=== PATIENT | female | born 1955 | race Caucasian/White ===

== ENCOUNTER → 2019-09-01 11:30 | Outpatient (CLI) | payer MEDICARE, OTHER, SELFPAY ==
--- NOTE | ~2019-09-01 | DEXA_ITS ---
Bone Density Report Name: Rufina Ramires Age: 64 Sex: Female Ethnicity: White Date of : 1955 Indication: osteopenia; monitoring treatment; postmenopausal Referring Provider: XIANG MONTGOMERY Study: Bone densitometry was performed. Exam Date: September 01, 2019 Accession number: [id number] Bone Density: Region BMD T-score Z-score Classification AP Spine (L1-L4) 0.816 -2.1 -0.3 Osteopenia Femoral Neck (Left) 0.680 -1.5 0.0 Osteopenia Total Hip (Left) 0.771 -1.4 -0.2 Osteopenia Femoral Neck (Right) 0.701 -1.3 0.2 Osteopenia Total Hip (Right) 0.756 -1.5 -0.3 Osteopenia Total Hip Mean 0.764 -1.5 -0.3 Osteopenia World Health Organization criteria for BMD impression classify patients as: Normal (T-score at or above -1.0), Osteopenia (T-score between -1.0 and -2.5), or Osteoporosis (T-score at or below -2.5). 10-year Fracture Risk: FRAX not reported because: Treated for osteoporosis Previous Exams: Region Exam Age BMD T-score BMD Change BMD Change Date g/cm2 vs Baseline vs Previous AP Spine(L1-L4) 09/01/2019 64 0.816 -2.1 0.000 0.011 07/25/2017 62 0.806 -2.2 -0.011 -0.011 04/02/2014 58 0.817 -2.1 Total Hip(Left) 09/01/2019 64 0.771 -1.4 0.020 0.016 07/25/2017 62 0.754 -1.5 0.003 0.003 04/02/2014 58 0.751 -1.6 Total Hip(Right) 09/01/2019 64 0.756 -1.5 0.017 -0.025 07/25/2017 62 0.782 -1.3 0.042* 0.042* 04/02/2014 58 0.739 -1.7 *Denotes significance at 95% confidence level, LSC for AP Spine = 0.022 g/cm2, LSC for Total Hip = 0.027 g/cm2 Clinical Information Provided by Patient: Is being treated for osteoporosis Has used the following medications: Evista (i.e. raloxifene), Vitamin D Patient maximum height was 66.5 Menopause Age: 43 Does not regularly consume dairy products Drinks caffeinated beverages Onset of menses at age 11 Number of children 1 Impression: The patient has low bone mass, based on the Total Spine T-score. No significant bone loss was observed. Discussion: PATIENT UNDER TREATMENT WITH NO SIGNIFICANT BMD LOSS SINCE LAST EXAM. In an untreated patient, BMD typically declines with age. A lack of decline or gain is usually a sign that treatment is efficacious and fracture risk is reduced. It is important to ask patients whether they are taking their medications and to encourage continued and
== END ==
PROVIDERS: Visit Provider Obstetrics & Gynecology
DX: Z78.0 Asymptomatic menopausal state (principal); M85.88 Other specified disorders of bone density and structure, other site; M85.852 Other specified disorders of bone density and structure, left thigh; M85.851 Other specified disorders of bone density and structure, right thigh
CPT/HCPCS: 77080

== ENCOUNTER → 2019-10-14 12:59 | Outpatient (CLI) | payer MEDICARE, OTHER, SELFPAY ==
--- NOTE | ~2019-10-14 | CT_ITS ---
EXAMINATION: CT abdomen pelvis wo con DATE: 10/14/2019 13:21 INDICATION: Right groin mass TECHNIQUE: Computed tomography (CT) of the abdomen and pelvis was performed without intravenous contr ast. The dose-length product (DLP) was 644.48 mGy-cm. Automated exposure control and iterative recons truction technique were employed. COMPARISON: None FINDINGS: The lung bases are clear. The heart size is normal. The liver, spleen, pancreas, gallbladde r, and adrenal glands are normal. The kidneys are unremarkable. There is calcified atherosclerosis of the aorta and many of the other arteries. No pathologically enlarged abdominal or pelvic lymph nodes are identified. There is no free intraperitoneal gas or evidence of bowel obstruction. The appendix is normal. There is a tiny inguinal hernia containing a small amount of ascites which measures up to 2.3 cm. IMPRESSION: 1. Tiny inguinal hernia containing a small volume of ascites likely accounting for the suspected righ t groin mass. Reviewed, dictated and finalized at location A. IMPRESSION: 1. Tiny inguinal hernia containing a small volume of ascites likely accounting for the suspected right groin mass.
== END ==
PROVIDERS: Visit Provider Obstetrics & Gynecology
DX: R19.09 Other intra-abdominal and pelvic swelling, mass and lump (principal); K40.90 Unilateral inguinal hernia, without obstruction or gangrene, not specified as recurrent
CPT/HCPCS: 74176

== ENCOUNTER → 2022-04-29 12:52 | Outpatient (CLI) | payer MEDICARE, OTHER, SELFPAY ==
--- NOTE | ~2022-04-29 | DEXA_ITS ---
Bone Density Report Name: ALIA DOTSON Age: 66 Sex: Female Ethnicity: White Date of : 1955 Indication: osteopenia; monitoring treatment; prior fracture;postmenopausal Referring Provider: Angel Luis Flynn Study: Bone densitometry was performed. Exam Date: April 29, 2022 Accession number: [id number] Bone Density: Region BMD T-score Z-score Classification AP Spine (L1-L4) 0.830 -2.0 0.0 Osteopenia Femoral Neck (Left) 0.651 -1.8 -0.1 Osteopenia Total Hip (Left) 0.755 -1.5 -0.2 Osteopenia Femoral Neck (Right) 0.681 -1.5 0.2 Osteopenia Total Hip (Right) 0.757 -1.5 -0.1 Osteopenia Total Hip Mean 0.756 -1.5 -0.2 Osteopenia World Health Organization criteria for BMD impression classify patients as: Normal (T-score at or above -1.0), Osteopenia (T-score between -1.0 and -2.5), or Osteoporosis (T-score at or below -2.5). 10-year Fracture Risk: FRAX not reported because: Treated for osteoporosis Previous Exams: Region Exam Age BMD T-score BMD Change BMD Change Date g/cm2 vs Baseline vs Previous AP Spine(L1-L4) 04/29/2022 66 0.830 -2.0 0.014 0.014 09/01/2019 64 0.816 -2.1 0.000 0.011 07/25/2017 62 0.806 -2.2 -0.011 -0.011 04/02/2014 58 0.817 -2.1 Total Hip(Left) 04/29/2022 66 0.755 -1.5 0.004 -0.016 09/01/2019 64 0.771 -1.4 0.020 0.016 07/25/2017 62 0.754 -1.5 0.003 0.003 04/02/2014 58 0.751 -1.6 Total Hip(Right) 04/29/2022 66 0.757 -1.5 0.018 0.001 09/01/2019 64 0.756 -1.5 0.017 -0.025 07/25/2017 62 0.782 -1.3 0.042* 0.042* 04/02/2014 58 0.739 -1.7 *Denotes significance at 95% confidence level, LSC for AP Spine = 0.022 g/cm2, LSC for Total Hip = 0.027 g/cm2 Clinical Information Provided by Patient: Has had a low trauma fracture Is being treated for osteoporosis Has used the following medications: Evista (i.e. raloxifene), Vitamin D, MTV Patient maximum height was 66.5 Menopause Age: 43 No regular weight bearing exercise Drinks caffeinated beverages Onset of menses at age 11 Number of children 1 Impression: The patient has low bone mass, based on the Total Spine T-score. The patient has risk factors, including: previous fracture. No significant bone loss was observed. Discussion: PATIENT UNDER TREATMENT WITH NO SIGNIFICANT BM
== END ==
PROVIDERS: Visit Provider Obstetrics & Gynecology
DX: Z78.0 Asymptomatic menopausal state (principal); M85.88 Other specified disorders of bone density and structure, other site; M85.851 Other specified disorders of bone density and structure, right thigh; M85.852 Other specified disorders of bone density and structure, left thigh
CPT/HCPCS: 77080

== ENCOUNTER 2023-02-02 18:52 | Emergency (ER) | payer MEDICARE, OTHER, SELFPAY ==
[2023-02-02 19:03] VITALS: BP 139/65; PULSE 82; RESP 14; TEMP 37.2; O2SAT 100
--- NOTE | 2023-02-02 19:17 | ED.URI ---
HPI - URI/Sore Throat General Chief Complaint: Upper Respiratory Infection Stated Complaint: Sore Throat Time Seen by Provider: 02/02/23 18:55 Source: patient Mode of arrival: ambulatory Limitations: no limitations History of Present Illness HPI Narrative: 67 year old female presents to [facility] with complaints of sore throat, right ear pressure, sinus congestion, cough and sneezing for the past week. Patient reports that her grandchildren recently visited her and they had similar symptoms and had negative strep test at that time. patient has been gargling warm saltwater with minimal relief. Patient has fever, Body aches, chills, nausea vomiting or diarrhea. patient reports that she has noticed increased fatigue today as she took a 2 hour nap prior to arrival MD elicited complaint: sore throat Onset (ago): week(s) (1) Able to tolerate fluids by mouth: Yes Exacerbating factors: swallowing Treatments prior to arrival: other (warm salt water gargles ) Related Data Home Medications Medication Instructions Recorded Confirmed aspirin 81 mg tablet,delayed 81 mg PO DAILY 08/17/19 02/02/23 release cholecalciferol (vitamin D3) 125 125 mcg PO DAILY 08/17/19 02/02/23 mcg (5,000 unit) tablet (Vitamin D3) coQ10 (ubiquinol) 200 mg capsule 200 mg PO DAILY 08/17/19 02/02/23 docusate sodium 100 mg capsule 100 mg PO DAILY 08/17/19 02/02/23 (Colace) folic acid-vit B6-vit B12 2.5 1 tablet PO EVERY OTHER DAY 08/17/19 02/02/23 mg-25 mg-2 mg tablet (Folbic) lactobacillus combination no.8 3 3,000 mmu cells PO DAILY 08/17/19 02/02/23 billion cell capsule (Adult Probiotic) niacin (inositol niacinate) 750 mg 750 mg PO BID 08/17/19 02/02/23 capsule omega-3 fatty acids-fish oil 360 1 cap PO BID 08/17/19 02/02/23 mg-1,200 mg capsule (Fish Oil) pravastatin 10 mg tablet 10 mg PO DAILY 08/17/19 02/02/23 raloxifene 60 mg tablet (Evista) 60 mg PO DAILY 08/17/19 02/02/23 vitamin K2 40 mcg tablet 100 mcg PO DAILY 08/17/19 02/02/23 amlodipine 5 mg tablet 5 mg PO DAILY 02/02/23 02/02/23 hydrochlorothiazide 12.5 mg tablet 12.5 mg PO DAILY 02/02/23 02/02/23 metoprolol succinate 25 mg 25 mg PO DAILY 02/02/23 02/02/23 tablet,extended release 24 hr Allergies Allergy/AdvReac Type Severity Reaction Status Date / Time isoniazid Allergy Unknown Hives Verified 02/02/23 18:54 Review of Systems Constitutional: Constitutional: Reports chills, Denies fatigue, Denies fever(s) and Denies weakness ENT: Denies vertigo, Denies dizziness, Denies epistaxis, Reports nasal congestion and Reports sore throat Comments: right ear pressure Respiratory: Respiratory: Reports cough, Denies dyspnea and Denies wheezing Gastrointestinal: Gastrointestinal: Denies diarrhea, Denies nausea and Denies vomiting Integumentary/Breasts: Skin/Breast: Denies pruritus, Denies erythema and Denies rash Neurologic: Denies dizziness, Denies syncope and Denies headache(s) PMFSH Past Medical History Medical History Facial basal cell cancer Hyperlipidemia Family History Family History Father Patient's father is in good health Sibling Family history of hypothyroidism Family history of malignant neoplasm of breast in first degree relative, Onset Age: 47 Mother Patient's mother is Comments At time of signature, I agree with nursing past medical, surgical, social and family history. There is no relevant family history pertinent to the presenting complaint. Exam Const: General: healthy appearing and no acute distress Nutritional Appearance: well nourished Orientation/consciousness: patient oriented x3 Limitations: no limitations HENMT: Head: normal to inspection Ears: external ears normal, TM's normal bilaterally and EAC's normal Face/Nose/Sinus: Normal external nose present Mouth: Yes Normal oral and palatal muc
== END 2023-02-02 19:28 | disposition home or self-care (01) ==
PROVIDERS: Emergency Provider Nurse Practitioner Family
DX: J06.9 Acute upper respiratory infection, unspecified (principal); E78.5 Hyperlipidemia, unspecified; Z85.828 Personal history of other malignant neoplasm of skin; Z79.82 Long term (current) use of aspirin
CPT/HCPCS: 87081; 87880; 99213; G0463

== ENCOUNTER 2024-04-07 19:09 | Emergency (ER) | payer MEDICARE, OTHER, SELFPAY ==
--- NOTE | ~2024-04-07 | XR_ITS ---
XR tibia fibula LT 2V Ordering provider: Nataly Barney APRN History: . left distal anterior leg pain s/p board dropping onto same . Comparison: December 18, 2014 FINDINGS: BONES: No acute fracture or dislocation. JOINT SPACES: Normal. SOFT TISSUES: Normal. IMPRESSION: No acute osseous abnormality left leg. Reviewed, dictated and finalized at location A.
[2024-04-07 19:23] VITALS: BP 167/76; PULSE 91; RESP 16; TEMP 37.2; O2SAT 98
--- NOTE | 2024-04-07 19:49 | ED.LOWEXIN ---
HPI - Extremity Injury (Lower) General Chief Complaint: Extremity Injury, Lower Stated Complaint: left hogan injury Time Seen by Provider: 04/07/24 19:50 Source: patient, RN notes reviewed and old records reviewed Mode of arrival: ambulatory Limitations: no limitations History of Present Illness HPI Narrative: Patient presents with complaints of left lower extremity pain. Just prior to arrival, she dropped what she describes as a ?very heavy board? to the left lower leg. She is ambulatory, but reports bearing weight hurts more. The area is tender to the touch, there is an associated abrasion present. No active bleeding. Related Data Home Medications Medication Instructions Recorded Confirmed aspirin 81 mg tablet,delayed 81 mg PO DAILY 08/17/19 04/10/24 release cholecalciferol (vitamin D3) 125 125 mcg PO DAILY 08/17/19 04/10/24 mcg (5,000 unit) tablet (Vitamin D3) coQ10 (ubiquinol) 200 mg capsule 200 mg PO DAILY 08/17/19 04/10/24 docusate sodium 100 mg capsule 100 mg PO DAILY 08/17/19 04/10/24 (Colace) folic acid-vit B6-vit B12 2.5 1 tablet PO EVERY OTHER DAY 08/17/19 04/10/24 mg-25 mg-2 mg tablet (Folbic) lactobacillus combination no.8 3 3,000 mmu cells PO DAILY 08/17/19 04/10/24 billion cell capsule (Adult Probiotic) niacin (inositol niacinate) 750 mg 750 mg PO BID 08/17/19 04/10/24 capsule omega-3 fatty acids-fish oil 360 1 cap PO BID 08/17/19 04/10/24 mg-1,200 mg capsule (Fish Oil) pravastatin 10 mg tablet 10 mg PO DAILY 08/17/19 04/10/24 raloxifene 60 mg tablet (Evista) 60 mg PO DAILY 08/17/19 04/10/24 vitamin K2 40 mcg tablet 100 mcg PO DAILY 08/17/19 04/10/24 amlodipine 5 mg tablet 5 mg PO DAILY 02/02/23 04/10/24 hydrochlorothiazide 12.5 mg tablet 12.5 mg PO DAILY 02/02/23 04/10/24 metoprolol succinate 25 mg 25 mg PO DAILY 02/02/23 04/10/24 tablet,extended release 24 hr Allergies Allergy/AdvReac Type Severity Reaction Status Date / Time isoniazid Allergy Unknown Hives Verified 04/10/24 11:26 Review of Systems Review of Systems: All systems reviewed & are unremarkable except as noted in HPI and below Constitutional: Constitutional: Reports no additional constitutional complaints ENT: Reports system reviewed and no additional complaints, except as documented Cardiovascular: Cardiovascular: Reports as per HPI and Reports no additional cardiovascular complaints Respiratory: Respiratory: Reports as per HPI and Reports no additional respiratory complaints Gastrointestinal: Gastrointestinal: Reports no additional gastrointestinal complaints Musculoskeletal: Musculoskeletal: Reports no additional musculoskeletal complaints and Reports as per HPI Integumentary/Breasts: Skin/Breast: Reports system reviewed and no additional complaints, except as docu and Reports as per HPI PMFSH Past Medical History Medical History Facial basal cell cancer Hyperlipidemia Family History Family History Father Patient's father is in good health Sibling Family history of hypothyroidism Family history of malignant neoplasm of breast in first degree relative, Onset Age: 47 Mother Patient's mother is Comments At the time of my signature, I reviewed and agree with the nursing past medical, surgical, social, and family history. There is no relevant family history pertinent to the patient complaint. Exam Const: General: cooperative, no acute distress, alert and awake Orientation/consciousness: oriented to person, oriented to place and oriented to time HENMT: Head: normal to inspection Resp: Effort & Inspection: normal respiratory effort and able to speak in complete sentences Auscultation: clear to auscultation bilaterally, no crackles, no rales, no rhonchi and no wheezes Cardio: Palpation: normal PMI Rate: regular rate Rhythm: regular rhythm Heart sounds: S1 n
[2024-04-07] MEDS: IBUPROFEN 400 MG TABLET 800 MG PO (20:03)
== END 2024-04-07 20:21 | disposition home or self-care (01) ==
PROVIDERS: Emergency Provider Nurse Practitioner Family
DX: S80.12XA Contusion of left lower leg, initial encounter (principal); T14.90XA Injury, unspecified, initial encounter; E78.5 Hyperlipidemia, unspecified
CPT/HCPCS: 73590; 99213; A9270; G0463

== ENCOUNTER 2024-04-10 11:16 | Emergency (ER) | payer MEDICARE, OTHER, SELFPAY ==
[2024-04-10 11:27] VITALS: BP 139/64; PULSE 93; RESP 19; TEMP 37; O2SAT 99
--- NOTE | 2024-04-10 11:57 | ED.LOWEXIN ---
HPI - Extremity Injury (Lower) General Chief Complaint: Extremity Injury, Lower Stated Complaint: Left Lower Leg Time Seen by Provider: 04/10/24 11:57 Source: patient, RN notes reviewed and old records reviewed Mode of arrival: ambulatory Limitations: no limitations History of Present Illness HPI Narrative: Patient presents with complaints of worsening to abrasion on left lower leg. Patient was seen 3 days ago for an injury to the left lower leg after board fell on it. She reports that overall the injury is feeling better, she is able to walk more comfortably, but the abrasion that she sustained is worsening. She further shares that she noted that there were several lizzy nails on the board that fell on her, she was not aware of this when she was initially seen. Last tetanus was 2018. She denies any new injury or trauma. Voices no other concerns or complaints today. Related Data Home Medications Medication Instructions Recorded Confirmed aspirin 81 mg tablet,delayed 81 mg PO DAILY 08/17/19 04/10/24 release cholecalciferol (vitamin D3) 125 125 mcg PO DAILY 08/17/19 04/10/24 mcg (5,000 unit) tablet (Vitamin D3) coQ10 (ubiquinol) 200 mg capsule 200 mg PO DAILY 08/17/19 04/10/24 docusate sodium 100 mg capsule 100 mg PO DAILY 08/17/19 04/10/24 (Colace) folic acid-vit B6-vit B12 2.5 1 tablet PO EVERY OTHER DAY 08/17/19 04/10/24 mg-25 mg-2 mg tablet (Folbic) lactobacillus combination no.8 3 3,000 mmu cells PO DAILY 08/17/19 04/10/24 billion cell capsule (Adult Probiotic) niacin (inositol niacinate) 750 mg 750 mg PO BID 08/17/19 04/10/24 capsule omega-3 fatty acids-fish oil 360 1 cap PO BID 08/17/19 04/10/24 mg-1,200 mg capsule (Fish Oil) pravastatin 10 mg tablet 10 mg PO DAILY 08/17/19 04/10/24 raloxifene 60 mg tablet (Evista) 60 mg PO DAILY 08/17/19 04/10/24 vitamin K2 40 mcg tablet 100 mcg PO DAILY 08/17/19 04/10/24 amlodipine 5 mg tablet 5 mg PO DAILY 02/02/23 04/10/24 hydrochlorothiazide 12.5 mg tablet 12.5 mg PO DAILY 02/02/23 04/10/24 metoprolol succinate 25 mg 25 mg PO DAILY 02/02/23 04/10/24 tablet,extended release 24 hr Allergies Allergy/AdvReac Type Severity Reaction Status Date / Time isoniazid Allergy Unknown Hives Verified 04/10/24 11:26 Review of Systems Review of Systems: All systems reviewed & are unremarkable except as noted in HPI and below Constitutional: Constitutional: Reports no additional constitutional complaints ENT: Reports system reviewed and no additional complaints, except as documented Cardiovascular: Cardiovascular: Reports no additional cardiovascular complaints Respiratory: Respiratory: Reports no additional respiratory complaints Gastrointestinal: Gastrointestinal: Reports no additional gastrointestinal complaints Integumentary/Breasts: Skin/Breast: Reports system reviewed and no additional complaints, except as docu, Reports as per HPI, Reports erythema and Reports wounds PMFSH Past Medical History Medical History Facial basal cell cancer Hyperlipidemia Family History Family History Father Patient's father is in good health Sibling Family history of hypothyroidism Family history of malignant neoplasm of breast in first degree relative, Onset Age: 47 Mother Patient's mother is Exam Const: General: cooperative, no acute distress, alert and awake Orientation/consciousness: oriented to person, oriented to place and oriented to time HENMT: Head: normal to inspection Resp: Effort & Inspection: normal respiratory effort and able to speak in complete sentences Auscultation: clear to auscultation bilaterally, no crackles, no rales, no rhonchi and no wheezes Cardio: Palpation: normal PMI Rate: regular rate Rhythm: regular rhythm Heart sounds: S1 normal heart sound present and S2 normal heart sound present Skin: F
[2024-04-10] MEDS: TETANUS,DIPHTHERIA,AC PERTUSSIS ADULT (0.5 ML) BOOSTRIX IM (12:15)
== END 2024-04-10 12:25 | disposition home or self-care (01) ==
PROVIDERS: Emergency Provider Nurse Practitioner Family
DX: L03.116 Cellulitis of left lower limb (principal); Z23 Encounter for immunization; S80.812A Abrasion, left lower leg, initial encounter; W20.8XXA Other cause of strike by thrown, projected or falling object, initial encounter; E78.5 Hyperlipidemia, unspecified; Z85.828 Personal history of other malignant neoplasm of skin; Z79.82 Long term (current) use of aspirin
CPT/HCPCS: 90471; 90715; 99213; G0463

== ENCOUNTER 2024-10-12 13:08 | Outpatient (CLI) | payer MEDICARE, OTHER, SELFPAY ==
--- NOTE | ~2024-10-12 | DEXA_ITS ---
Bone Density Report Name: ALIA DOTSON Age: 69 Sex: Female Ethnicity: White Date of : 1955 Indication: postmenopausal; screening for osteoporosis; Referring Provider: GURU RICHARDS Study: Bone densitometry was performed. Exam Date: October 12, 2024 Accession number: [id number] Bone Density: Region BMD T-score Z-score Classification AP Spine(L1-L4) 0.845 -1.8 0.3 Osteopenia Femoral Neck (Left) 0.668 -1.6 0.2 Osteopenia Total Hip (Left) 0.800 -1.2 0.4 Osteopenia Femoral Neck (Right) 0.672 -1.6 0.2 Osteopenia Total Hip (Right) 0.751 -1.6 -0.1 Osteopenia Total Hip Mean 0.775 -1.4 0.2 Osteopenia World Health Organization criteria for BMD impression classify patients as: Normal (T-score at or above -1.0), Osteopenia (T-score between -1.0 and -2.5), or Osteoporosis (T-score at or below -2.5). 10-year Fracture Risk: FRAX not reported because: Treated for osteoporosis Clinical Information Provided by Patient: Is being treated for osteoporosis Has used the following medications: Evista (i.e. raloxifene), Vitamin D Patient maximum height was 66.5 Menopause Age: 43 No regular weight bearing exercise Drinks caffeinated beverages Onset of menses at age 11 Number of children 1 Impression: The patient has low bone mass, based on the Total Spine T-score. Discussion: It is important to ask patients whether they are taking their medications and to encourage continued and appropriate compliance with their osteoporosis therapies to reduce fracture risk. It is also important to review their risk factors and encourage appropriate calcium and vitamin D intakes, exercise, fall prevention and other lifestyle measures. Follow-Up: Consider a repeat BMD and Vertebral Fracture Assessment (VFA) exam in 2 years or sooner if medically necessary, to reassess this patient's status. Reported by: FLORA on 10/12/2024 1:48:00 PM. Reviewed, dictated and finalized at location [facility]
--- OUTSIDE RECORDS SUMMARY | 2024-10-12 14:35 | XMS_ITS | Data Portability ---
Author Organization [facility] [place] Address [address] [place] [address] Assessment Encounter Date Assessment Date Assessment LastModified by Organization Details LastModified Time 05/13/2024 05/13/2024 Annual gynecological exam performed. Patient will come back in a year unless there are new symptoms. [email or web address] Not available 05/13/2024 15:39:56 Plan of Treatment Reminders Order Date Submit Date Provider Last Modified By Organization Details Last Modified Time Details Appointments MED CHECK 2024 01:00P Jennifer FLYNN MD Not available Not available Not available Lab None recorded. Referral None recorded. Procedures None recorded. Surgeries None recorded. Imaging None recorded. Medication Orders phentermi ne 15 mg capsule 2023 [facility] [address], [address] [place], [address], 05/13/2024 16:21:14 estradiol 0.01% (0.1 mg/gram) vaginal cream 2023 [facility]/Pharmacy #[id number], [address] [place], [address], 05/13/2024 16:18:48 phentermi ne 15 mg capsule 2023 [facility]/Pharmacy #[id number], [address] [place], [address], 11/06/2023 16:00:04 phentermi ne 15 mg capsule 2023 024 [facility]/Pharmacy #[id number], [address] [place], [address], 09/04/2023 15:54:34 Patient TargetsNo targets recorded. Patient InstructionsNo instructions recorded. Reason for Referral None Reported. Results Created Date Observation Date Name Description Value Unit Range Abnormal Flag Note LastModifiedBy Organization Detail LastModifiedTime 05/13/20 24 05/13/2024 IMAGE GUIDE D PAP AND HPV REGAR DLESS image guided Pap, HPV regardless of Pap result SEE RESULT S BELOW CASE REPOR T: Cytol ogy Gynec ologi janna Repor t Case: [id number] Autho konrad simon Provi sumaya: Ramiro Flynn MD Colle cted: 05/13 1601 Order ing Locat ion: [place] Patho log[facility] Recei trin[place]: 05/14 0925 First Scree n: José Miguel Carney ed, CT Speci men: Evelin perdomo Pap - Image d, Cervi x STATE MENT OF ADEQU ACY: Satis facto ry for evalu ation Trans forma tion zone compo nent canno t be defin itive ly ident ified due to the prese nce of atrop hy or other hormo nal jorgensen es ----- ----- ----- ----- ----- ----- ----- ----- ----- ----- ----- ----- ----- ----- ----- ----- ----- ---- FINAL DIAGN OSIS: Negat tha for Intra epith elial Leseleno n or Mikel padilla (NIL) . Atrop jose cruz rn. Elect joe pabon by José Miguel Carney ed, CT on 05/20 at 12:06 AM ----- ----- ----- ----- ----- ----- ----- ----- ----- ----- ----- ----- ----- ----- ----- ----- ----- ---- HPV RESUL TS: HPV mRNA E6/E7 : No HPV mRNA Detec merly NOTE: This high risk HPV mRNA assay detec ts fourt een high- risk HPV types (16, 18, 31, 33, 35, 39, 45, 51, 52, 56, 58, 59, 66, 68) witho ut diffe renti ation . COMME NT: This speci men was revie wed by a Cytot echno logis t and/o r Patho logis t (as indic ated in this repor t) after evalu ation using the Thinp rep Imagi ng Syste m. CLINI JANNA INFOR MATIO N: Menst rual Statu s: LMP (if appli cable ): Clini janna Histo ry/Pr eviou s Pap: Type of Neopl robert (if appli cable ): Signi fican t Clini janna Findi ngs: Other Histo ry: Hormo nik (if appli cable ): PAP EDUCA CARMEN L NOTE: The Pap Test is a scree leanne test with an inher ent false negat tha rate. Liqui d-bas ed sampl ing may decre ase, but will not elimi elizabeth, false negat tha resul ts. A negat tha resul t does not precl ude the prese nce and/o r devel opmen t of disea se, since the prese nce of abnor mal cells in the sampl e depen ds on the locat ion of the lesio n and sampl ing techn ique. Ector nued regul ar scree leanne is the best metho d of cance r preve ntion . If repor merly cytol ogic findi ng do not corre late with physi janna and/o r histo rical findi ngs, furth er inves tigat ion is recom jose d, as clini nia elliott nted. Not Available [facility] (Lab) [address], [place], [address], 05/20/2024 01:09:28 08/19/19 25 08/19/2024 CBC W/DIF F WBC 5.8 10'3/ uL 3.5-[address] [facility] (Lab) [address], [place], [address], 08/20/2024 06:45:20 08/19/19 25 08/19/2024 CBC W/DIF F RBC 4.53 10'6/ uL (based on docume nted legal sex) 3.80-[address] [facility] (Lab) [address], [place], [address], 08/20/2024 06:45:20 08/19/19 25 08/19/2024 CBC W/DIF F HGB 14.4 g/dL (based on docume nted legal sex) 11.6-[address] [facility] (Lab) [address], [place], [address], 08/20/2024 06:45:20 08/19/19 25 08/19/2024 CBC W/DIF F HCT 43.6 % (based on docume nted legal sex) 34.0-[address] [facility] (Lab) [address], [place], [address], 08/20/2024 06:45:20 08/19/19 25 08/19/2024 CBC W/DIF F MCV 96.2 fL 80.0-[address] [facility] (Lab) [address], [place], [address], 08/20/2024 06:45:20 08/19/19 25 08/19/2024 CBC W/DIF F MCH 31.8 pg 27.0-[address] [facility] (Lab) [address], [place], [address], 08/20/2024 06:45:20 08/19/19 25 08/19/2024 CBC W/DIF F MCHC 33.0 g/dL 32.0-[address] [facility] (Lab) [address], [place], [address], 08/20/2024 06:45:20 08/19/19 25 08/19/2024 CBC W/DIF F RDW 12.7 % 11.0-[address] [facility] (Lab) [address] [facility], [place], [address], 08/20/2024 06:45:20 08/19/19 25 08/19/2024 CBC W/DIF F plt 267 10'3/ uL 150-[address] [facility] (Lab) [address] [facility], [place], [address], 08/20/2024 06:45:20 08/19/19 25 08/19/2024 CBC W/DIF F MPV 10.0 fL 8.8-[address] [facility] (Lab) [address] [facility], [place], [address], 08/20/2024 06:45:20 08/19/19 25 08/19/2024 CBC W/DIF F neutrophils 59.3 % 34.0-[address] [facility] (Lab) [address] [facility], [place], [address], 08/20/2024 06:45:20 08/19/19 25 08/19/2024 CBC W/DIF F lymphocytes 28.3 % 15.0-[address] [facility] (Lab) [address] [facility], [place], [address], 08/20/2024 06:45:20 08/19/19 25 08/19/2024 CBC W/DIF F monocytes 9.0 % 1.0-[address] [facility] (Lab) [address] [facility], [place], [address], 08/20/2024 06:45:20 08/19/19 25 08/19/2024 CBC W/DIF F eosinophils 2.1 % 0.0-8. [address] [facility] (Lab) [address] [facility], [place], [address], 08/20/2024 06:45:20 08/19/19 25 08/19/2024 CBC W/DIF F basophils 1.0 % 0.0-2. [address] [facility] (Lab) [address] [facility], [place], [address], 08/20/2024 06:45:20 08/19/19 25 08/19/2024 CBC W/DIF F immature granulocytes 0.3 % no define d refere nce range Immat ure Granu locyt es (IG) repre sents autom ated enume ratio n of Metam yeloc ytes, Myelo cytes and Promy elocy kathleen when IG is < 5%. Blast s are not inclu ded in IG and repor merly separ ately if prese nt. Not Available [facility] (Lab) [address] [facility], [place], [address], 08/20/2024 06:45:20 08/19/19 25 08/19/2024 CBC W/DIF F absolute neutrophils 3.4 10'3/ uL 1.5-8. [address] [facility] (Lab) [address] [facility], [place], [address], 08/20/2024 06:45:20 08/19/19 25 08/19/2024 CBC W/DIF F absolute lymphocytes 1.6 10'3/ uL 1.0-4. [address] [facility] (Lab) [address] [facility], [place], [address], 08/20/2024 06:45:20 08/19/19 25 08/19/2024 CBC W/DIF F absolute monocytes 0.5 10'3/ uL 0.2-1. [address] [facility] (Lab) [address] [facility], [place], [address], 08/20/2024 06:45:20 08/19/19 25 08/19/2024 CBC W/DIF F absolute eosinophils 0.1 10'3/ uL 0.0-0. [address] [facility] (Lab) [address], [place], [address], 08/20/2024 06:45:20 08/19/19 25 08/19/2024 CBC W/DIF F absolute basophils 0.1 10'3/ uL 0.0-0. [address] [facility] (Lab) [address], [place], [address], 08/20/2024 06:45:20 08/19/19 25 08/19/2024 CBC W/DIF F absolute immature granulocytes 0.0 10'3/ uL 0.00-0 .10 Refer ence range s for nonbi nary/ inter sex or unspe cifie d gende r patie nts have not been estab lishe d. Pleas e [facility] for range s estab lishe d for cisge nder patie nts and evalu ate in the clini janna demetrius xt of the indiv idual patie nt: https ://heather keenan book. nm.or g/Gen derX Not Available [facility] (Lab) [address], [place], [address], 08/20/2024 06:45:20 08/19/19 25 08/19/2024 LIPID PANEL ,AMA (LDL- CALC) total cholesterol 143 mg/dL 0-199 Not Available [facility] (Lab) [address] [place], [address], 08/20/2024 06:45:21 08/19/19 25 08/19/2024 LIPID PANEL ,AMA (LDL- CALC) triglyceride s 72 mg/dL 0-150 NCEP Refer ence Value s for Trigl yceri abraham: Joana l: <150 mg/dL Borde rline High: 150 - 199 mg/dL High: 200 - 499 mg/dL Very High: >/= 500 mg/dL Not Available [facility] (Lab) [address] [place], [address], 08/20/2024 06:45:21 08/19/19 25 08/19/2024 LIPID PANEL ,AMA (LDL- CALC) HDL cholesterol 51 mg/dL >40 Not Available [facility] (Lab) [address] [facility], [place], [address], 08/20/2024 06:45:21 08/19/19 25 08/19/2024 LIPID PANEL ,AMA (LDL- CALC) LDL cholesterol 77 mg/dL 0-99 Cutof f value s recom jose d by the Natio nal Triny stero l Educa tion Progr am: EDILBERTO ABLE: Triny stero l <200 mg/dL LDL <100 mg/dL BORDE RLINE : Triny stero l 200-2 39 mg/dL LDL 101-1 59 mg/dL HIGHE R RISK: Triny stero l >240 mg/dL LDL >160 mg/dL , HDL <40 mg/dL Not Available [facility] (Lab) [address] [facility], [place], [address], 08/20/2024 06:45:21 08/19/19 25 08/19/2024 LIPID PANEL ,AMA (LDL- CALC) non-HDL cholesterol 92 mg/dL no refere nce range A reaso nable goal for non-H DL triny stero l is one that is 30 mg/dL highe r than the LDL triny stero l goal. Not Available [facility] (Lab) [address] [place], [address], 08/20/2024 06:45:21 08/19/1908/19/2024 LIPID PANEL ,AMA (LDL- CALC) chol/HDL ratio 2.8 . 0.0-5. 0 On November 19, 2022, [facility] labor atori sathish jorgensen ed the equat ion for calcu latin g estim ated low-d ensit y lipop rotei n-cho leste rol (LDL- C) from the Merna leeald equat ion to the Maura rojas/Chito buchanan equat ion. This new equat ion is only valid for lipid panel s with trigl yceri abraham < 400 mg/dL . Studi es have demon nadine ed that this new equat ion will impro ve the accur acy of LDL-C , espec ially in scena gottlieb when LDL-C sofia ntrat ions are relat ively low (< 100 mg/dL ), trigl yceri abraham are eleva merly, or patie nt is non-f astin g. Refer ences : - Maura rojas, Jaxson Shah, Patrick Stewart , José Miguel vyas, Dick Navas, [facility] , and Catalino Smith . 2013. Comp ariso n of a Novel Metho d vs the Fried jacob Equat ion for Estim ating Low-D ensit y Lipop rotei n Triny stero l Level s from the [facility] Lipid Profi le. RAUDEL: The Journ al of the Ameri can Medic al Assoc iatio n 310 (19): 2060- . - oJanna santana V, Zita J, Hailee ar A, Dallas M, Radha e R, Opal ar E, [facility]adi [facility] RS, Luis SR, Maura rojas SS. Fast ing Versu s Nonfa sting and Low-D ensit y Lipop rotei n Triny stero l Accur acy. Circu latio n. 2017Jul 29;137 (1):1 0-19. Not Available [facility] (Lab) [address] , [place], [address], 08/20/2024 06:45:21 08/19/1908/19/2024 CMP(C OMPRE HENSI VE METAB OLIC PANEL ) sodium 136 mmol/ L 133-[address] [facility] (Lab) [address] [place], [address], 08/20/2024 06:45:21 08/19/1908/19/2024 CMP(C OMPRE HENSI VE METAB OLIC PANEL ) potassium 4.2 mmol/ L 3.5-5. [address] [facility] (Lab) [address], [place], [address], 08/20/2024 06:45:21 08/19/19 25 08/19/2024 CMP(C OMPRE HENSI VE METAB OLIC PANEL ) chloride 101 mmol/ L 98-[address] [facility] (Lab) [address], [place], [address], 08/20/2024 06:45:21 08/19/19 25 08/19/2024 CMP(C OMPRE HENSI VE METAB OLIC PANEL ) carbon dioxide 29 mmol/ L 21-[address] [facility] (Lab) [address] [facility], [place], [address], 08/20/2024 06:45:21 08/19/19 25 08/19/2024 CMP(C OMPRE HENSI VE METAB OLIC PANEL ) anion gap 6 mmol/ L 4-[address] [facility] (Lab) [address] [facility], [place], [address], 08/20/2024 06:45:21 08/19/19 25 08/19/2024 CMP(C OMPRE HENSI VE METAB OLIC PANEL ) blood urea nitrogen 25 mg/dL 7-25 Not Available [facility] (Lab) [address] [facility], [place], [address], 08/20/2024 06:45:21 08/19/19 25 08/19/2024 CMP(C OMPRE HENSI VE METAB OLIC PANEL ) creatinine 0.96 mg/dL 0.60-[address] [facility] (Lab) [address] [facility], [place], [address], 08/20/2024 06:45:21 08/19/19 25 08/19/2024 CMP(C OMPRE HENSI VE METAB OLIC PANEL ) egfrcr (CKD-epi 2020) 64 mL/mi n/1.7 3_m2 >=[address] [facility] (Lab) [address] [facility], [place], [address], 08/20/2024 06:45:21 08/19/19 25 08/19/2024 CMP(C OMPRE HENSI VE METAB OLIC PANEL ) calcium 9.7 mg/dL 8.3-[address] [facility] (Lab) [address] [facility], [place], [address], 08/20/2024 06:45:21 08/19/19 25 08/19/2024 CMP(C OMPRE HENSI VE METAB OLIC PANEL ) glucose 86 mg/dL 70-[address] [facility] (Lab) [address] [facility], [place], [address], 08/20/2024 06:45:21 08/19/19 25 08/19/2024 CMP(C OMPRE HENSI VE METAB OLIC PANEL ) protein, total 7.1 g/dL 6.4-8. [address] [facility] (Lab) [address] [facility], [place], [address], 08/20/2024 06:45:21 08/19/19 25 08/19/2024 CMP(C OMPRE HENSI VE METAB OLIC PANEL ) albumin 4.5 g/dL 3.5-5. [address] [facility] (Lab) [address] [facility], [place], [address], 08/20/2024 06:45:21 08/19/19 25 08/19/2024 CMP(C OMPRE HENSI VE METAB OLIC PANEL ) ALT 17 units /L 9-[address] [facility] (Lab) [address] [facility], [place], [address], 08/20/2024 06:45:21 08/19/19 25 08/19/2024 CMP(C OMPRE HENSI VE METAB OLIC PANEL ) alkaline phosphatase 69 units /L 34-[address] [facility] (Lab) [address] [facility], [place], [address], 08/20/2024 06:45:21 08/19/19 25 08/19/2024 CMP(C OMPRE HENSI VE METAB OLIC PANEL ) AST 20 units /L 13-[address] [facility] (Lab) [address] [facility], [place], [address], 08/20/2024 06:45:21 08/19/19 25 08/19/2024 CMP(C OMPRE HENSI VE METAB OLIC PANEL ) bilirubin, total 0.9 mg/dL 0.2-1. [address] [facility] (Lab) [address] [facility], [place], [address], 08/20/2024 06:45:21 08/19/1908/19/2024 TSH, REFLE X FREE T4 TSH 3.32 uIU/m L 0.30-[address] [facility] (Lab) [address] [facility], [place], [address], 08/20/2024 06:45:21 08/19/1908/19/2024 VITAM IN D, 25-OH (TOTA L D2/D3 ) vitamin D, 25-hydroxy, total 84.8 NG/mL 30.0-1 00.0 Sugge stive of Defic iency : <20 ng/mL Sugge stive of Insuf ficie ncy: 20-29 ng/mL Sugge stive of Suffi cienc y: 30-10 0 ng/mL Sugge stive of Toxic ity: >150 ng/mL Not Available [facility] (Lab) [address] [facility], [place], [address], 08/20/2024 06:45:22 Result Notes None recorded. 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 1 12:47:[address] Concept Completed 201412/07/2020 Encntr for general adult medical exam w/o abnormal findings ;Recorde d Elsewher e: No Locat ion: [facility] S ource: EHR Thrill Performer lizandro: N Practi ce ID: [id number] Jose lable Time: 11:30:00 AM Andrew Flynn MD [address], [place], [address], [facility] 1 12:47:14 Screenin g for malignan t neoplasm of cervix Completed 201312/07/2020 Screenin g for malignan t neoplasm s of the cervix;R ecorded Elsewher e: No Locat ion: [facility] S ource: EHR Thrill Performer lizandro: N Amyti ce ID: [id number] Jose lable Time: 04:30:00 PM Andrew Flynn MD [address], [place], [address], [facility] [address] 12:47:[address] Concept Completed 201912/07/2020 Encntr for cooler servicer exam (general ) (routine ) w/o abn findings ;Recorde d Elsewher e: No Locat ion: [facility] S ource: EHR Thrill Performer lizandro: N Amyti ce ID: [id number] Jose lable Time: 01:00:00 PM Andrew Flynn MD [address], [place], [address], [facility] 1 12:47:17 Finding of trunk structur e [id number] Completed 201912/07/2020 Pelvic swelling w/ mass;Rec orded Elsewher e: No Locat ion: [facility] S ource: EHR Thrill Performer lizandro: N Amyti ce ID: [id number] Jose lable Time: 11:15:00 AM Andrew Flynn MD [address], [place], [address], [facility] 1 12:46:56 Blood leukocyt e number above referenc e range [id number] Completed 201712/07/2020 Elevated white blood cell count, unspecif ied;Chris rded Elsewher e: No Locat ion: [facility] S ource: EHR Thrill Performer lizandro: N Practi ce ID: [id number] Jose lable Time: 02:15:00 PM Andrew Flynn MD [address], [place], [address], [facility] 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 1 12:47:24 Radiolog ic finding [id number] Completed 201812/07/2020 Oth abn and inconclu sive findings on dx imaging of breast;R ecorded Elsewher e: No Locat ion: [facility] S ource: EHR Thrill Performer lizandro: N Practi ce ID: [id number] Jose lable Time: 11:23:45 AM Andrew Flynn MD [address], [place], [address], [facility] 1 12:46:59 Alopecia [id number] Active 2020 Autoimmu ne Andrew Flynn MD [address], [place], [address], [facility] 1 12:46:48 Hyperten sive disorder [id number] Active 2023 Talita Osborne [facility], [facility] 4 15:30:26 Problem Notes None recorded. Procedures Surgical History Date Name Laterality Status Provider Name and Address Organization Details Recorded Time 05/13/20 24 Date of Last Pap Smear completed [facility] 08/12/2024 15:30:05 01/26/20 24 Date of Last Mammogram completed [facility] 05/13/2024 15:44:36 04/29/20 22 Most Recent Bone Density completed [facility] 04/29/2022 18:05:36 08/23/19 22 completed [facility] 12/24/2022 14:13:53 10/27/19 21 completed [facility] 12/07/2020 12:31:42 08/23/19 20 Date of Last Colonoscopy completed [facility] 12/24/2022 14:13:53 08/23/19 20 Colonoscopy completed Talita Osborne [facility] 11/08/2023 09:35:04 07/28/19 14 Colonoscopy completed [facility] 12/07/2020 11:28:47 07/28/19 10 colonoscopic polypectomy completed [facility] 12/07/2020 11:29:07 Imaging Results None recorded. Procedure Notes None recorded. Medical Equipment None Reported. Allergies Allergen ID Allergen Name Allergen Category Reaction Reaction Severity Criticality Documentation Date Start Date Code Code System Note Provider Name and Address Organization Details Recorded Time 72044 isoniazid medicatio n hives Not available Not available 07/14/2020 6038 RxNorm React ion: hives ; Comme nt: [facility]; [facility] Available [facility] 0 14:20:50 Medications Name Sig Start Date Stop Date Status Note LastModified by Organization Details LastModified Time Colace 100 mg capsule take 1 capsule by oral route every day at bedtime as needed 02/11 completed Prescrib ed Elsewher e: Yes Loca tion: [facility] odify By: kilo kingunter DateTime : 07/03/20 10:30:00 AM Not Available Not Available Not Available doxycycli ne hyclate 100 mg capsule TAKE 1 CAPSULE BY MOUTH ONCE DAILY 08/12 completed Not Available Not Available Not Available azithromy christy 250 mg tablet TAKE 2 TABLETS BY MOUTH TODAY, THEN TAKE 1 TABLET DAILY FOR 4 DAYS 03/11 completed Not Available Not Available Not Available hydrocodo ne 5 mg-acetam inophen 325 mg tablet TAKE 1 TO 2 TABLETS BY MOUTH EVERY 6 HOURS NEEDED FOR PAIN FOR 3 DAYS 02/11 completed Not Available Not Available Not Available phentermi ne 15 mg capsule Take 1 capsule PO QD 2024 active Not Available Not Available Not Avai lable amlodipin e 5 mg tablet TAKE 1 TABLET BY MOUTH ONCE DAILY active Not Available Not Available No t Available folic acid 400 mcg tablet take 1 tablet by oral route every day 12/07 completed Prescrib ed Elsewher e: Yes Loca tion: [facility] odify By: kilo Andujar ncounter DateTime : 07/03/20 17 10:30:00 AM Not Available Not Available Not Available aspirin 81 mg tablet,de layed release take 1 tablet by oral route every day 04/29 completed Prescrib ed Elsewher e: Yes Loca tion: [facility] odify By: nancy kingunter DateTime : 05/11/20 15 11:30:00 AM Not Available Not Available Not Available spironola ctone 25 mg tablet TAKE 1 TABLET BY MOUTH ONCE DAILY active Not Available Not Available No t Available pravastat in 10 mg tablet TAKE 1 TABLET BY MOUTH EVERYDAY AT BEDTIME 03/11 completed Not Available Not Available Not Available amlodipin e 10 mg tablet 08/12 completed Not Available Not Available Not Available ferrous sulfate 325 mg (65 mg iron) tablet TAKE 1 TABLET BY MOUTH EVERY DAY 02/11 completed Not Available Not Available Not Available raloxifen e 60 mg tablet TAKE 1 TABLET BY MOUTH ONCE DAILY active Not Available Not Available No t Available metoprolo l succinate ER 25 mg tablet,ex tended release 24 hr TAKE 1 TABLET BY MOUTH ONCE DAILY active Not Available Not Available No t Available Vitamin D2 1,250 mcg (50,000 unit) capsule take 1 capsule by oral route every week 04/29 completed Prescrib ed Elsewher e: No [facility] By: rocío bai DateTime : 08/05/19 09:20:02 AM Not Available Not Available Not Available clobetaso l 0.05 % scalp solution APPLY TO AFFECTED AREA DAILY ON SCALP 11/05 completed Not Available Not Available Not Available loratadin e 10 mg tablet TAKE 1 TABLET BY MOUTH DAILY 03/11 completed Not Available Not Available Not Available Fish Oil 500 mg capsule 11/05 completed Prescrib ed Elsewher e: Yes [facility] By: nancy bai DateTime : 05/11/20 11:30:00 AM Not Available Not Available Not Available Endur-Aci n 250 mg tablet,ex tended release take 4 tablet by oral route 3 times every day 12/07 completed Prescrib ed Elsewher e: Yes [facility] By: nancy bai DateTime : 05/11/20 11:30:00 AM Not Available Not Available Not Available Vitamin D3 25 mcg (1,000 unit) tablet 04/29 completed Prescrib ed Elsewher e: Yes Loca tion: [facility] odify By: nancy bai DateTime : 05/11/20 15 11:30:00 AM Not Available Not Available Not Available Co Q-10 50 mg capsule 04/29 completed Prescrib ed Elsewher e: Yes Loca tion: [facility] odify By: kilo bai DateTime : 05/22/20 16 02:00:00 PM Not Available Not Available Not Available topiramat e 50 mg tablet TAKE 1 TABLET BY MOUTH TWICE A DAY 03/11 completed Not Available Not Available Not Available Vitamin D active Not Available Not Sedrick ilable Not Available hydrochlo rothiazid e 12.5 mg tablet TAKE 1 TABLET BY MOUTH ONCE DAILY active Not Available Not Available No t Available Chantix Continuin g Month Kwan 1 mg tablet take 1 tablet by oral route 2 times every day with a glass of water after meals 05/11 completed Prescrib ed Elsewher e: No [facility] By: nancy kingsolomon DateTime : 08/31/19 15 11:19:43 AM Not Available Not Available Not Available Fish Oil 300 mg capsule 03/02 completed Prescrib ed Elsewher e: Yes Loca tion: Juanito con [facility] odify By: nancy bai DateTime : 09/24/19 12 03:30:00 PM Not Available Not Available Not Available Chantix Starting Month Box 0.5 mg (11)-1 mg (42) tablets in dose pack take 1 - 2 by Oral route once as directed 05/11 completed Prescrib ed Elsewher e: No Locat ion: [facility] odify By: nancy bai DateTime : 03/02/20 14 04:30:00 PM Not Available Not Available Not Available vitamin K2 40 mcg tablet active Prescrib ed Elsewher e: Yes [facility] By: kilo bai DateTime : 07/03/20 17 10:30:00 AM Not Available Not Available Not Available Repatha SureClick 140 mg/mL subcutane ous pen injector USE ONE INJECTIO N SUBCUTAN EOUSLY EVERY TWO WEEKS active Not Available Not Available No t Available Repatha SureClick 02/11 completed Not Available Not Available Not Available Probiotic 15 billion cell capsule 02/11 completed Prescrib ezra Granados e: Yes Loca tion: Jay [facility] M odfariba By: kilo kingunter DateTime : 07/03/20 10:30:00 AM Not Available Not Available Not Available WesTab Max 2.5 mg-25 mg-2 mg tablet take 1 tablet daily 2024 active Not Available Not Available Not Avai lable BinaxNOW COVID-19 Ag Self Test kit USE DIRECTED ON BOX TO TEST FOR COVID-19 11/05 completed Not Available Not Available Not Available Vitals Date Recorded Body height Body mass index (BMI) Body weight Systolic blood pressure Diastolic blood pressure Provider Name and Address Organization Details Last Updated DateTime 09/04/2023 165.1 cm 26.3 kg/m2 19894.59 g 125 mm[Hg] 76 mm[Hg] Tianna Goodman [facility] 4 15:20:28 Date Recorded Body height Body mass index (BMI) Body weight Systolic blood pressure Diastolic blood pressure Provider Name and Address Organization Details Last Updated DateTime 11/06/2023 165.1 cm 26.1 kg/m2 92967 g 129 mm[Hg] 80 mm[Hg] Talita Osborne [facility] 4 15:28:55 Date Recorded Body height Body mass index (BMI) Body weight Systolic blood pressure Diastolic blood pressure Provider Name and Address Organization Details Last Updated DateTime 02/12/2024 165.1 cm 26.6 kg/m2 76310.78 g 125 mm[Hg] 75 mm[Hg] Dai Velasco [facility] 4 15:17:09 Date Recorded Body height Body mass index (BMI) Body weight Systolic blood pressure Diastolic blood pressure Provider Name and Address Organization Details Last Updated DateTime 05/13/2024 165.1 cm 26.6 kg/m2 03877.78 g 142 mm[Hg] 81 mm[Hg] Dai Velasco [facility] 4 15:39:29 Date Recorded Body height Body mass index (BMI) Body weight Systolic blood pressure Diastolic blood pressure Provider Name and Address Organization Details Last Updated DateTime 08/12/2024 165.1 cm 27.7 kg/m2 03390.05 g 143 mm[Hg] 80 mm[Hg] Dai Munsoner [facility] 5 15:29:23 Social History Question Answer Notes LastModified by Organizat ion Details LastModified Time Tobacco Smoking Status Former Smoker Kendy Lugo kranthi, [facility] 03/11/2023 12:20:49 Do You Have An Advance Directive? No Information not available 12/24/2022 What Is Your Level Of Alcohol Consumption? Occasional Information not available 12/24/2022 How Many Years Have You Consumed Alcohol? 40 Information not available 12/24/2022 Are You Blind Or Do You Have Difficulty Seeing? No Information not available 12/24/2022 What Is Your Level Of Caffeine Consumption? Moderate Information not available 12/24/2022 How Much Tobacco Do You Chew? None Information not available 12/24/2022 In The 14 Days Before Symptom Onset, Have You Had Close Contact With A Laboratory-confir med COVID-19 While That Case Was Ill? No Information not available 12/24/2022 In The 14 Days Before Symptom Onset, Have You Had Close Contact With A Person Who Is Under Investigation For COVID-19 While That Person Was Ill? No Information not available 12/24/2022 Have You Been To An Area Known To Be High Risk For COVID-19? No Information not available 12/24/2022 Are You Deaf Or Do You Have Serious Difficulty Hearing? No Information not available 12/24/2022 What Type Of Diet Are You Following? CARDIAC Information not available 12/24/2022 What Is The Highest Grade Or Level Of School You Have Completed Or The Highest Degree You Have Received? [id number] Information not available 12/24/2022 What Is Your Occupation? Retired Information not available 12/24/2022 Are There Any Guns Present In Your Home? No Information not available 12/24/2022 Do You Use Protection During Sex? No Information not available 12/24/2022 Do You Use Your Seat Belt Or Car Seat Routinely? Yes Information not available 12/24/2022 Do You Have Smoke And Carbon Monoxide Detectors In Your Home? Yes Information not available 12/24/2022 At What Age Did You Start Smoking Tobacco? 17 Information not available 12/24/2022 How Much Tobacco Do You Smoke? No Information not available 12/24/2022 Do You Feel Stressed (tense, Restless, Nervous, Or Anxious, Or Unable To Sleep At Night)? [id number] Information not available 12/24/2022 Do You Use Any Illicit Or Recreational Drugs? No Information not available 12/24/2022 Do You Use Sunscreen Routinely? Yes Information not available 12/24/2022 How Many Years Have You Smoked Tobacco? 40 Information not available 12/24/2022 Have You Used IV Drugs? No Information not available 12/24/2022 Sex: Unknown Functional Status Question Answer Note LastModified by Organizat ion Details LastModified Time Do you have difficulty walking or climbing stairs? No Information not available 11/06/2023 Are you able to walk? YESWOREST Information not available 12/24/2022 Are you able to care for yourself? Yes [email or web address] Information not available 11/06/2023 Do you have difficulty dressing or bathing? No [email or web address] Information not available 11/06/2023 What is your exercise level? Moderate Information not available 12/24/2022 Mental Status None recorded. Family History Relationship Description Onset Age of this Age Resolved Age Notes LastModified by Organization Details LastModified Time Mother Hypertensive disorder Not available 2022 16:10:55 Mother End-stage renal disease [email or web address] Not available 11/05 15:29:38 Mother Kidney disease 50 62 Not available 2022 14:13:48 Sister Osteoporosis 6 [email or web address] Not sedrick ilable 11/06/2023 15:29:38 Sister Malignant tumor of breast 44 [email or web address] Not available 11/05 15:29:38 Maternal Grandmother Malignant tumor of breast [email or web address] Not available 11/05 15:29:38 Medical History Condition Response Other N Blood Transfusion N Dermatologic Disorders Y Gestational Diabetes N Anxiety Disorder Y Autoimmune disease Y Arthritis N Polyps Y Infertility N Acid Reflux (GERD) Y Cancer N Varicosities N Stroke N Neurologic/Epilepsy N Fibromyalgia N Headaches N Kidney Disease N Heart Problems N Kidney or Bladder Problems N Eating Disorder N Art (IVF or FET) N Hepatitis/Liver Disease N No Past Medical History N Urinary Tract Infection N Asthma N Trauma/Violence N Thrombophilias N Allergies (Food, seasonal, environmental ) N Breast Cancer N Drug/Latex Allergies/Reactions Y Lung Disease N Defects or Inherited Disease N Breast Problem Y Hematologic disorders N Anesthesia Complications N History of STI N Deep Vein Thrombosis N Polycystic ovary syndrome N History of abnormal pap N Endometriosis N High Cholesterol Y Thyroid Problems N GI Problems N Anemia Y Psychiatric Illness N Ovarian Cancer N Diabetes N Pulmonary (TB, Asthma) N Eczema N Abuse/Domestic Violence N Depression/ depression N Heart Disease Y Pre-Eclampsia N Hypertension Y Osteoporosis N Gynecological History Statement/Question Response Date of Last Mammogram 01/26/2024 Date of LMP 07/28/1997 N Was last menstrual period normal Y STIs/STDs N 10/26/2020 If Post Menopausal, Age at Menopause 43 Date of Last Colonoscopy 08/23/2019 Menopause Abnormal Pap N On BCP's at Conception? N HPV Vaccine N Current Control Method Menopause 43 Age at First Child 29 Are cycles usually normal Y Most Recent Bone Density 04/29/2022 Sexually Active? Y Date of DEXA bone scan 04/28/2022 Age of first menstrual cycle 12 Date of Last Pap Smear 05/13/2024 Sexual Problems? N LMP Approximate 08/23/2021 Obstetrics History GPAL:G 1 P 1 0 0 1 Type Value Full Term 1 Living 1 Total 1 Past Encounters Encounter ID Performer Location Encounter Start Date Encounter Closed Date Diagnosis/Indication Diagnosis SNOMED-CT Code Diagnosis ICD10 Code Diagnosis Note [id number] Andrew Flynn MD [facility] [address],[place] [address] 12/07/2020 11:54:43 12/07/2020 13:04:09 Gynecologic examination 45208836 Z01.419 This patient is here for her annual exam. A thorough history was taken. A physical exam was performed. Age appropriat e routine health screening was ordered, performed, and discussed. Recommende d testing was ordered. She was asked to follow up in one year. She will be informed of any test results. Mammogram - [ done] Colonoscop y - [done ] Bone Density - [ done ] Cholestero l - [done ] Pap - today [id number] Andrew Flynn MD [facility] [address],[place] [address] 04/29/2022 12:09:04 04/29/2022 14:19:38 Gynecologic examination 81397962 Z01.419 This patient is here for her annual exam. A thorough history was taken. A physical exam was performed. Age appropriat e routine health screening was ordered, performed, and discussed. Recommende d testing was ordered. She was asked to follow up in one year. She will be informed of any test results. Mammogram - done Colonoscop y - done Bone Density - ordered Cholestero l - done Pap - today [id number] Andrew Flynn MD [facility] [address],[place] [address] 12/24/2022 13:49:28 12/25/2022 15:36:46 Screening for disorder 642091094 Z13.9 Obesity 349360613 E66.9 This patient is a 67-year-ol d female who presents for weight management . We took a very thorough history. We talked about some of her goals. Talked about some of her challenges . We talked about some of her previous efforts in weight loss and her activity level. We talked about limitation s for activity. Talked about energy consumptio n energy expenditur e. She was given recommenda tions and some of these areas. We talked about the importance of resistance training and cardiovasc ular exercise. We talked about her medical history in its relationsh ip to excess body weight. We talked about treatment options. We talked about the evaluation that is appropriat e for beginning weight management . We talked about her diet and our dietitian. We agreed to a dietitian consult. We agreed to a sleep study. We agreed to metabolic testing. We performed body compositio n testing today. We reviewed those results and talked about their significan ce. We spent over 1 hour together. More than 50% was counseling . We agreed to come together in 2 weeks and initiate treatment. patient to consider sleep study, she is going to discussed phentermin e with her cardiologi st. Newell to check hemoglobin A1c. [id number] Andrew Flynn MD [facility] [address],[facility] [place] [address] 01/22/2023 14:12:41 01/22/2023 15:14:48 Obesity 699537930 E66.9 59-year-ol d female who presents for follow-up on weight management . She has lost 7 lb in a month. She is able to manage her diet very well. She has cut out sugar. She is very active. She is exercising . We agreed to continue on the current dose. We talked about medication s. She did not tolerate topiramate . She discontinu ed topiramate very quickly. She is fine which is phentermin e. It is working , she states. we spent more than 30 minutes face-to-fa ce. More than 50% was counseling . She will return in 1 month. [id number] Andrew Flynn MD [facility] [address],[facility] [place] [address] 03/11/2023 12:20:33 03/11/2023 13:22:53 Obesity 014142714 E66.9 59-year-ol d female who presents for follow-up on weight management . she has lost good weight over the last few months. She has had trouble with diet given the summer lifestyle of vacationin g and socializin g.. She is very active. She is exercising . We agreed to continue on the current dose. We talked about medication s. She did not tolerate topiramate . She discontinu ed topiramate very quickly. She is fine which is phentermin e. It is working , she states. we spent more than 30 minutes face-to-fa ce. More than 50% was counseling . She will return in 1 month. [id number] Andrew Flynn MD [facility] [address],[place] [address] 05/01/2023 16:04:35 05/01/2023 16:45:32 Obesity 447205746 E66.9 59-year-ol d female presents for follow-up on weight management . She is doing reasonably well on 15 mg phentermin e. She has some hunger. She had a lot of events that she was attending throughout the country over the past few weeks. So weight management is been to open it she would like to continue the current dose of phentermin e and focus on her lifestyle changes and see how much she can lose on the current dosing. She is exercising well and she is making the dietary changes necessary to lose weight. Roberto mancilla educated. Should do well. [id number] Andrew Flynn MD [facility] [address],[place] [address] 07/03/2023 15:05:24 07/03/2023 15:43:58 Obesity 146497495 E66.9 59-year-ol d female presents for follow-up on weight management . She is doing reasonably well on 15 mg phentermin e. She has some hunger. But, she would like to continue the current dose of phentermin e and focus on her lifestyle changes and see how much she can lose on the current dosing. She is exercising well and she is making the dietary changes necessary to lose weight. Roberto mancilla educated. Should do well. Spent 20 minutes face to face. More than 50% was counseling . [id number] Andrew Flynn MD [facility] [address],[place] [address] 09/04/2023 14:56:27 09/04/2023 15:58:28 Obesity 460629336 E66.9 59-year-ol d female presents for follow-up on weight management . She is doing reasonably well on 15 mg phentermin e. She has some hunger. But, she would like to continue the current dose of phentermin e and focus on her lifestyle changes and see how much she can lose on the current dosing. She is exercising well and she is making the dietary changes necessary to lose weight. Roberto mancilla, educated. Should do well. Spent 20 minutes face to face. More than 50% was counseling . [id number] Andrew Flynn MD [facility] [address],[place] [address] 11/06/2023 14:56:58 11/06/2023 16:01:46 Obesity 364961408 E66.9 59-year-ol d female who presents for follow-up on weight management . she has lost good weight over the last few months. She has had trouble with diet given the summer lifestyle of vacationin g and socializin g.. She is very active. She is exercising . We agreed to continue on the current dose. We talked about medication s. She did not tolerate topiramate . She discontinu ed topiramate very quickly. She is fine which is phentermin e. It is working , she states. we spent more than 30 minutes face-to-fa ce. More than 50% was counseling . She will return in 1 month. Andrew Flynn MD [facility] [address],[place] [address] 02/12/2024 14:58:30 02/12/2024 16:32:43 Obesity 608346147 E66.9 59-year-ol d female who presents for follow-up on weight management . she has lost good weight over previous months. She has had trouble with diet given the summer lifestyle of vacationin g and socializin g.. She is very active. She is exercising . We agreed to continue on the current dose. We talked about medication s. She did not tolerate topiramate .. phentermin e has workied. SHe has some weight regain. she is going to focus our efforts and stay at the same dose. We did talk about dose changes. She has having a blood pressure issue that is concern to us. We will continue at our same dose. She will return in 1 month. Spent more than 20 minutes on her care [id number] Andrew Flynn MD [facility] [address],[place] [address] 05/13/2024 15:05:08 05/13/2024 16:45:38 Gynecologic examination [id number] Z01.419 This patient is here for her annual exam. A thorough history was taken. A physical exam was performed. Age appropriat e routine health screening was ordered, performed, and discussed. Recommende d testing was ordered. She was asked to follow up in one year. She will be informed of any test results. Mammogram - done Colonoscop y - done Bone Density - ordered Cholestero l - done Pap - today Atrophic vulvovaginitis 04712779 N95.2 Obesity 242411339 E66.9 [id number] Andrew Flynn MD [facility] [address],[place] [address] 08/12/2024 14:55:41 08/17/2024 03:25:29 Obesity 576839784 E66.9 this patient is a 69-year-ol d female presents for weight management follow-up. We discussed treatment today. She has been maintainin g weight but has had add blood pressure medication to keep her blood pressure down on the phentermin e. Talked about GLP once again today we had made agreed to administer GLP 1 today. She was given a 2.5 mg dose of tirzepatid e. Talked about the medication s in detail. Talked about the risks, benefits, and alternativ es. Discussed instructio ns and precaution s. Spent over 20 minutes total in her care. Health Concerns Section Related Observation LastModified by Organization Detai ls LastModified Time None Recorded Concern Status LastModified by Organization Details LastModified Time None Recorded Advance Directives Directive N: Payers Encounter Date Sequence Insurance Name Policy Number Policy Gomez Covered Member ID Gomez Member ID Guarantor Name 09/04/2023 2 [employer] (MEDICARE SUPPLEMENT) Rufina Chaveze [id number] Rufina Keyla 09/04/2023 1 [place] Rufina Rodriguez Keyla [id number] Rufina Ekyla 11/06/2023 2 [employer] (MEDICARE SUPPLEMENT) Rufina Chaveze [id number] Rufina Chaveze 11/06/2023 1 [place] Rufina Ramires [id number] Rufina Ramires 02/12/2024 2 [employer] (MEDICARE SUPPLEMENT) Rufina Ramires [id number] Rufina Ramires 02/12/2024 1 [place] Rufina Ramires [id number] Rufina Ramires 05/13/2024 2 [employer] (MEDICARE SUPPLEMENT) Rufina Ramires [id number] Rufina Ramires 05/13/2024 1 [place] Rufina Ramires [id number] Rufina Ramires 08/12/2024 2 [employer] (MEDICARE SUPPLEMENT) Rufina Ramires [id number] Rufina Ramires 08/12/2024 1 [place] Rufina Ramires [id number] Rufina Ramires Notes Date Note Type Note Provider Name and Address Organization Details Recorded Time 09/04/2023 text/html 59-year-old brenda reyes presents for follow-up on weight management. She is doing reasonably well on 15 mg phentermine. She has some hunger. But, she would like to continue the current dose of phentermine and focus on her lifestyle changes and see how much she can lose on the current dosing. She is exercising well and she is making the dietary changes necessary to lose weight. Knowledgeable, educated. Should do well. Spent 20 minutes face to face. More than 50% was counseling. Andrew Flynn MD [address], [place], [address], [facility] 09/04/2023 15:56:27 11/06/2023 text/html 59-year-old brenda reyes who presents for follow-up on weight management. she has lost good weight over the last few months. She has had trouble with diet given the summer lifestyle of vacationing and socializing.. She is very active. She is exercising. We agreed to continue on the current dose. We talked about medications. She did not tolerate topiramate. She discontinued topiramate very quickly. She is fine which is phentermine. It is working , she states. we spent more than 30 minutes [id number]. More than 50% was counseling. She will return in 1 month. Andrew Flynn MD [address], [place], [address], [facility] 11/06/2023 15:57:19 02/12/2024 text/html 59-year-old brenda reyes who presents for follow-up on weight management. she has lost good weight over previous months. She has had trouble with diet given the summer lifestyle of vacationing and socializing.. She is very active. She is exercising. We agreed to continue on the current dose. We talked about medications. She did not tolerate topiramate.. phentermine has workied. SHe has some weight regain. she is going to focus our efforts and stay at the same dose. We did talk about dose changes. She has having a blood pressure issue that is concern to us. We will continue at our same dose. She will return in 1 month. Spent more than 20 minutes on her care Andrew Flynn MD [address], [place], [address], [facility] 02/12/2024 16:09:33 05/13/2024 text/html Annual GYNReport ed bypatient.History: no gynecologic complaints Urinary symptoms:No hematuria; No incontinence Vulva:No genital lesion Vagina:Normal vaginal discharge Breast:No breast pain; No breast lump Sexual complaints:No sexual complaints;Pain during intercourse Menopausal Symptoms:No menopausal symptoms;Inadequac y of lubrication of vaginal mucosa Psychological symptoms:No depression; No anxiety Preventive measures:Encourage self breast examination; Encourage regular exercise Andrew Flynn MD [address], [place], [address], [facility] 05/13/2024 16:21:36 08/12/2024 text/html this patient is a 69-year-old female presents for weight management follow-up. We discussed treatment today. She has been maintaining weight but has had add blood pressure medication to keep her blood pressure down on the phentermine. Talked about GLP once again today we had made agreed to administer GLP 1 today. She was given a 2.5 mg dose of tirzepatide. Talked about the medications in detail. Talked about the risks, benefits, and alternatives. Discussed instructions and precautions. Spent over 20 minutes total in her care. Andrew Flynn MD [address], [place], [address], [place] [facility] 08/16/2024 16:47:19 OBGyn Episode Ob Episode Information Episode Created Date Number of Fetuses Patient Bloodtype Patient rh Status Prepregnancy Weight lbs Domestic Partner Domestic Partner Phone Father Name Forest Economist Status 12/08/19 21 1 CLOSED Fetus Data First Name Last Name Admitted to NICU Weight (g) Sex Living Outcome Pediatric Complications Fetus ID Race Codes Race Delivery Type M [id number] Vaginal Delivery Raphael Calculation Initial Raphael Date Initial Exam Date Initial Exam Provider Initial Ultrasound Date Last Menstrual Period Date Ultra Sound Weeks Gestation 0 Eighteen To Twenty Week Raphael Update Ultra Sound Date Fundal Height At Umbil Quickening Date Ultra Sound Latest Weeks Gestation Final Raphael Confirmed By Final Raphael Confirmed Date Final Raphael Date Ultra Sound Latest Days Gestation 0 0 Menstrual History Last Menstrual Date Menses Monthly On Bcp Conception Prior Menses Frequency Hcg Plus Date Menarche Onset Age Delivery Information Delivery Date Delivery Type Labor Anesthesia Weeks Gestation Incision Type Labor Labor Length Hrs Delivered By Post Complications Tubal Sterilization Discharge Date Comments 5 Tereso Discharge Information Feeding Method Contraceptive Method Maternal HG B and HCT Levels
--- OUTSIDE RECORDS SUMMARY | 2024-10-12 14:35 | XMS_ITS | Clinical Summary ---
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 Gender Identity Not on file Sexual Orientation Not on file Plan of Treatment Health Maintenance Due Date Last Done Comments DEXA Bone Density 1955 Hepatitis C Virus (HCV) Screening 1955 Colonoscopy 1999 Colorectal Cancer Screening 1999 Cologuard 2004 Immunochemical Fecal Occult Blood 2004 Mammogram 2004 Influenza Immunization (#1) 03/28/202403/29, 04/10/2018, 04/28/2017, Additional history exists SARS-COV-2 Immunization ( season) 2024 07/11/2021, 11/14/2020, 10/10/2020 Respiratory Syncytial Virus (RSV) Immunization (Adult) (1 - 1-dose 75+ series) 2029 DTaP/Tdap/Td Immunization Discontinued 12/18/2014 TdaP Immunization Completed 12/18/2014 Zoster Immunization Completed 09/16/2020, 04/24/2020, 07/25/2014 Pneumococcal Immunization (50+ years) Completed 06/06/2021, 10/04/2019 Hepatitis B Immunization Aged Out No longer eligible based on patient's age to complete this topic Meningococcal Immunization (ACWY) Aged Out No longer eligible based on patient's age to complete this topic Rotavirus Immunization Aged Out No lo nger eligible based on patient's age to complete this topic
--- OUTSIDE RECORDS SUMMARY | 2024-10-12 14:35 | XMS_ITS | Referral Summary ---
Author Organization [facility] Address [address] [place] [id number] Care Team Providers Care Nuisance Animal Damage Control Agent Name Role Phone Luis Felipe Martino MD Primary Care Provider Allergies Active Allergy Reactions Criticality Noted Date Comments Ezetimibe Muscle pain High 11/24/2020 Inh Hives,Itching Medium 10/17/2020 Isoniazid Hives Medium 02/16/2021 Lovastatin Muscle pain Medium 11/24/2020 Rosuvastatin Muscle pain Medium 11/24/2020 Medications raloxifene (EVISTA) 60 mg tablet Take 1 tablet (60 mg total) by mouth daily Active docusate sodium (COLACE) 100 mg capsuleIndicati ons:constipatio n Take 1 capsule (100 mg total) by mouth 2 (two) times a day Active Repatha SureClick 140 mg/mL pen injector 11/28/2020 Active cholecalciferol (VITAMIN D-3) 5,000 unit tablet Take by mouth daily 09/15/2017 Active magnesium oxide (MAG-OX) 400 mg (241.3 mg elemental magnesium) tablet Take by mouth 07/28/1969 Active amLODIPine (NORVASC) 5 mg tablet 1 tablet (5 mg total) 07/18/2023 Active metoprolol XL (TOPROL-XL) 25 mg extended release tablet Take 1 tablet (25 mg total) by mouth daily 11/29/2022 Active magnesium citrate solution 300 mL orally once for 1 dose(s) Active hydroCHLOROthia zide 12.5 mg tablet 1 tablet (12.5 mg total) 07/18/2023 Active ergocalciferol (VITAMIN D) 50,000 unit capsule 1 cap(s) orally once a week for 30 day(s) Active Active Problems Problem Noted Date Diagnosed Date Family history of ischemic h eart disease and other diseases of the circulatory system 02/16/2021 Alopecia 12/07/2020 History of abnormal mammogram 11/15/2020 Iron deficiency 02/25/2020 Overview (02/14/2021): nml b12 Aortic atherosclerosis 02/23/2020 Contact with and (suspected) exposure to other communicable diseases 02/23/2020 Encounter for health-related screening 0 Hyperlipidemia, unspecified 02/23/2020 Overweight 02/23/2020 Palpitations 02/23/2020 Atherosclerosis of aorta 02/23/2020 Vitamin D deficiency 10/29/2018 Personal history of nicotine dependence 09/17/19 19 Abnormal findings on diagnostic imaging of chino t 09/14/2018 Breast cancer screening, high risk patient 09/14 Coronary atherosclerosis due to calcified erwin ry lesion 06/12/2016 Disorder of bone and articular cartilage 014 Leukocytosis 03/02/2014 Immunizations Immunization Administration Dates Next Due H1N1 Inj 04/30/2019 Influenza, Quadrivalent, Hig h Dose, Preservative Free, Intrr 04/24/2020 Influenza, Quadrivalent, Spl it, Preservative Free, Intramuscular 04/10/2018 Influenza, Trivalent, IM (MDV) 04/28/2017,2014 Influenza, Trivalent, Preservative Free, Intramu scular 06/11/2016 Pneumococcal Conjugate PCV 13 10/04/2019 Tdap 12/18/2014 ZOSTER LIVE 07/25/2014 ZOSTER Recombinant 04/24/2020 Social History Tobacco Use Types Packs/Day Years Used Date Smoking Tobacco: Former Smokeless Tobacco: Never Alcohol Use Standard Drinks/Week Comments Yes 0 (1 standard drink = 0.6 oz pur e alcohol) Personal Safety Answer Date Recorded Getting School Help Needed Not on file 09/21 Comments No Sex and Gender Information Value Date Recorded Sex Assigned at Not on file Legal Sex Female 8:42 PM RESIDENTIAL INSTALLER Gender Identity Female 08/21/2020 1:37 PM RESIDENTIAL INSTALLER Sexual Orientation Straight 08/21/2020 1: 37 PM RESIDENTIAL INSTALLER Last Filed Vital Signs Vital Sign Reading Time Taken Comments Blood Pressure - - Pulse - - Temperature 37 C (98.6 F) 08/22/2020 8:02 AM RESIDENTIAL INSTALLER Respiratory Rate - - Oxygen Saturation - - Inhaled Oxygen Concentration - - Weight 73.5 kg (162 lb) 05/22/2022 12:53 PM CDT Height 167.6 cm (5' 6 ) 05/22/2022 12:53 PM CDT Body Mass Index 26.15 05/22/2022 12:53 PM CDT Plan of Treatment Not on file Procedures Procedure Name Priority Date/Time Associated Diagnosis Comments SCREENING MAMMOGRAM BILATERAL W CLAUDIO Schedule Routine, Read Routine (OP Routine) 03/10/2024 1:35 PM CDT Screening mammogram, encounter for from Last 3 Months or Most Recently Relevant to Health Maintenance Results * Screening Mammogram Bilateral W Claudio (03/10/2024 1:35 PM CDT) Anatomical Region Laterality Modality Breast Bilateral Mammography Narrative 03/15/2024 10:10 AM CDT Mammogram Technique: Bilateral Digital Breast Tomosynthesis, Bilateral C-view 2D Screening mammogram. Views obtained: bilateral craniocaudal and bilateral mediolateral oblique. Computer Aided Detection was performed. Mammogram Findings: The present examination has been compared to prior imaging studies performed at [facility] on 11/15/2020, 12/05/2021 and 12/11/2022. There are scattered areas of fibroglandular density. There is no suspicious abnormality in either breast. Impression: There is no mammographic evidence of malignancy. Annual screening mammography is recommended. OVERALL FINAL ASSESSMENT: BI-RADS CATEGORY 1: Negative. Procedure Note Sumi Sanabria MD - 03/15/2024 Mammogram Technique: Bilateral Digital Breast Tomosynthesis, Bilateral C-view 2D Screening mammogram. Views obtained: bilateral craniocaudal and bilateral mediolateral oblique. Computer Aided Detection was performed. Mammogram Findings: The present examination has been compared to prior imaging studies performed at [facility] on 11/15/2020, 12/05/2021 and 12/11/2022. There are scattered areas of fibroglandular density. There is no suspicious abnormality in either breast. Impression: There is no mammographic evidence of malignancy. Annual screening mammography is recommended. OVERALL FINAL ASSESSMENT: BI-RADS CATEGORY 1: Negative. us Self Screening Mammogram IMG MAMMO PROCEDURES Fi nal Result from Last 3 Months or Most Recently Relevant to Health Maintenance Insurance [facility] Care Teams Nuisance Animal Damage Control Agent Relationship Specialty Start Date End Date Luis Felipe Martino MD [address] [place] [address] PCP - General Internal Medicine 08/28/18
--- OUTSIDE RECORDS SUMMARY | 2024-10-12 14:35 | XMS_ITS | Clinical Summary ---
Author Organization [facility] Address [address] [place] [id number] Care Team Providers Care Barber Shop Operator Name Role Phone Luis Felipe Martino MD [...] 12/18/2014 ZOSTER LIVE 07/25/2014 ZOSTER Recombinant 04/24/2020 Surgical History Surgery Date Site/Laterality Comments SKIN CANCER EXCISION 07/28/2015 - 07/27/2016 COLONOSCOPY Medical History Medical History Date Comments Heart disease Overweight Skin cancer Family History Medical History Relation Name Comments Breast cancer Sister Relation Name Status Comments Sister Social History Tobacco Use Types Packs/Day Years [...] on file Legal Sex Female 8:42 PM GUEST 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 Gender Identity Female 08/21/2020 1:37 PM GUEST SERVICES AMBASSADOR Sexual Orientation Straight 08/21/2020 1: 37 PM GUEST SERVICES AMBASSADOR Obstetrics History Last Filed Vital Signs Vital Sign Reading Time Taken Comments Blood Pressure - - Pulse - - Temperature 37 C (98.6 F) 08/22/2020 8:02 AM GUEST SERVICES AMBASSADOR Respiratory Rate - - Oxygen Saturation - - Inhaled Oxygen Concentration - - Weight 73.5 kg (162 lb) 05/22/2022 12:53 PM CDT Height 167.6 cm (5' 6 ) 05/22/2022 12:53 PM CDT Body Mass Index 26.15 05/22/2022 12:53 PM CDT Plan of Treatment Health Maintenance Due Date Last Done Comments Colon Cancer Screening-Colonoscopy 1955 Depression Screening 1955 Fall Risk Assessment 1955 Hepatitis C Screening 1955 Osteoporosis Screening-Bone Density Scan 1954 Hepatitis B Screening 1972 Well Visit 65+ 2019 Zoster Vaccine (3 of 3) 06/19/2020 04/24/2020, 07/25 Pneumococcal vaccine 65+ (2 of 2 - PPSV23) 10/03/2020 10/04/2019 Influenza Vaccine (#1) 2024 0, 04/10/2018, 04/28/2017, Additional history exists DTaP/Tdap/Td Vaccine (2 - Td or Tdap) 12/18/2024 12/18/2014 Breast Cancer Screening-Mammogram 03/10/2025 03/10/2024, 12/11/2022, 12/05/2021, Additional history exists Procedures Procedure Name Priority Date/Time Associated Diagnosis [...] compared to prior imaging studies performed at [facility] on 11/15/2020, 12/05/2021 and 12/11/2022. There [...] compared to prior imaging studies performed at [facility] on 11/15/2020, 12/05/2021 and 12/11/2022. There [...] Recently Relevant to Health Maintenance Insurance MEDICARE [employer] [place] [employer] [place] [employer] [place] Care Teams Barber Shop Operator Relationship Specialty Start Date End Date Luis Felipe Martino MD [address] [place] [address] PCP - General Internal Medicine 08/28/18
--- OUTSIDE RECORDS SUMMARY | 2024-10-12 14:35 | XMS_ITS ---
Author Organization [facility] Address [address] [facility] [address] [place], [place] [id number] Care Team Providers Care Trailer Park Manager Name Role Phone Luis Felipe Martino Primary Care Provider Giorgi Thakur Unavailable [phone] Migration, Provider Unavailable Unavailable REASON FOR VISIT Multum To Medispan Conversion Encounter Medications Medication SIG (Take, Route, Frequency, Duration) Notes Start Date End Date Status Folic Acid 5 MG/ML as directed intravenously once a day for 30 day(s) Active Vitamin D (Ergocalciferol) 1.25 MG (26910 UT) 1 cap(s) orally once a week for 30 day(s) Active Evista 60 MG 1 tab(s) orally once a day for 30 day(s) Active Repatha 140 MG/ML as directed subcutaneously every 2 weeks Active Feosol 200 MG 1 TAB(S) ORALLY ONCE A DAY *Please review and pick correct strength[facility]ulati [facility]. If intended option is not shown, discontinue and re-order from Quick Search* Active PROBIOTICS 1 PILL ONCE A DAY fo r 30 DAYS *Please review for potential replacement for e-prescription and drug interaction check* Active Magnesium Citrate 1.745 GM/30ML 300 mL orally once for 1 dose(s) Active ASA/CAFFEINE/PROPO XYPHENE *Please review for potential replacement for e-prescription and drug interaction check* Active Encounters Encounter Location Date Provider Diagnosis [facility] [address] [place], [place] [phone] 07/10/2024 Provider Migration Plan Of Treatment No Information Progress Notes * Gwen DOTSONOB:1955 ( 69 yo F)Acc No.[id number]:07/10/2024 Patient: Rufina HERNANDEZ Provider: Chasidy Manjarrez :1955 A ge:69 Y S ex:Female Date:07/10/2024 Address:[facility] [address], [place] [address] Pcp:Luis Felipe Martino Subjective: * Chief Complaints: * 1 . [facility]. * Medical History: * Medications: T aking Folic Acid 5 MG/ML Solution as directed intravenously once a day , Taking PROBIOTICS 1 PILL ONCE A DAY , Notes to Pharmacist: *Please review for potential replacement for e-prescription and drug interaction check*, Taking Magnesium Citrate 1.745 GM/30ML Solution 300 mL orally once , Taking ASA/CAFFEINE/PROPOXYPHENE , Notes to Pharmacist: *Please review for potential replacement for e-prescription and drug interaction check*, Taking Vitamin D (Ergocalciferol) 1.25 MG (63807 UT) Capsule 1 cap(s) orally once a week , Taking Feosol 200 MG TABLET 1 TAB(S) ORALLY ONCE A DAY , Notes to Pharmacist: *Please review and pick [facility]. If intended option is not shown, discontinue and re-order from Quick Search*, Taking Repatha 140 MG/ML Solution Prefilled Syringe as directed subcutaneously every 2 weeks , Taking Evista 60 MG Tablet 1 tab(s) orally once a day Objective: * Vitals: * Physical Examination: Assessment: Plan: * Treatment: * * Electronic signature of Marcos arthur Migration on 10/12/2024 at 02:35 PM CDT Sign off status: Pending * Provider: Chasidy Manjarrez Date: 1 09/10/2023 Generated for Yuri arauz/Cinthya/Olga Lidiasmitting on: 0 10/12/2024 02:35 PM CDT
--- OUTSIDE RECORDS SUMMARY | 2024-10-12 14:35 | XMS_ITS | Patient Health Record ---
Author Organization [facility] Address [address] [place], [place] [id number] Care Team Providers Care Manufacturing Technology Professor Name Role Phone Luis Felipe Martino Primary Care Provider Giorgi Thakur Unavailable [phone] Migration, Provider Unavailable Unavailable Reason For Referral No Information Medications Medication SIG (Take, Route, Frequency, Duration) Notes Start Date End Date Status PROBIOTICS 1 PILL ONCE A DAY fo r 30 DAYS *Please review for potential replacement for e-prescription and drug interaction check* Active Folic Acid 5 MG/ML as directed intravenously once a day for 30 day(s) Active Magnesium Citrate 1.745 GM/30ML 300 mL orally once for 1 dose(s) Active Vitamin D (Ergocalciferol) 1.25 MG (01174 UT) 1 cap(s) orally once a week for 30 day(s) Active ASA/CAFFEINE/PROPO XYPHENE *Please review for potential replacement for e-prescription and drug interaction check* Active Evista 60 MG 1 tab(s) orally once a day for 30 day(s) Active Repatha 140 MG/ML as directed subcutaneously every 2 weeks Active Feosol 200 MG 1 TAB(S) ORALLY ONCE A DAY *Please review and pick correct strength-formulati on from Medispan options. 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 Problem Sensorineural hearing loss of bilateral ears (disorder) (437277458) Sensorineural hearing loss, bilateral (H90.3) Active confirmed with asymetri jarod, LT>RT, Problem Conductive hearing loss of left ear with normal hearing on right side (disorder) (6774519786) Sensorineural hearing loss, unilateral, left ear, with unrestricted hearing on the contralateral side (H90.42) Active confirmed Encounters Encounter Location Date Provider Diagnosis [facility] [address] [place], [place] [phone] 07/10/2024 Provider Migration Plan Of Treatment No Information Insurance Providers Payer Name Payer Address Payer Phone Subscriber Number Group Number Insured Name Patient Relationship to Insured Coverage Start Date Coverage End Date [place] [address] [address] [place] [address] [id number] Rufina Ramires Self - patient is the insured [employer] [address] [id number] [phone] [id number] Rufina Ramires Self - patient is the insured Medical (General) History Medical History History ICD Code Pertinent Medical History: Ear problems, History of skin cancer, Other, Surgical History Surgery Date(Month/Year) basal cell removed nose
--- OUTSIDE RECORDS SUMMARY | 2024-10-12 14:36 | XMS_ITS | CONTINUITY OF CARE DOCUMENT ---
Author Name saumya kerns Address Unknown Organization [facility] Address [address] [place] [address] Phone [phone] Care Team Providers Care Can Repairer Name Role Phone Shaina HESS, Isiah Cruz Unavailable [phone] NAVARRO OGDEN MD Unavailable [phone] NAVARRO OGDEN MD Unavailable PROBLEMS Condition Status Date Provider Notes Chest tightness active Sarah Cassidy IRON DEFICIENCY active Dallas Le MD nml b12 Tobacco use quit active Nena Sims RN Coronary atherosclerosis due to calcified coronary lesion active Chad Christine MD Dyslipidemia completed - Dallas Le MD Elevated Lp(a) completed - Dallas Le MD Prediabetes completed - Dallas Le MD 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 - Dallas Le MD Family History of CVA or Stroke: completed - H almas Le MD Family History of Hypertension: completed - Payan suzanne Le MD Abnormal labs completed - Dallas Le MD Elevated C-reative protein completed 09/15 - Dallas Le MD Elevated TSH completed - Dallas Le MD Vitamin D deficiency active Chad Christine MD Dyspnea on exertion completed - Dallas Le MD Palpitations completed - Dallas Le MD Hyperlipidemia;with nml crp active Dallas sloan MD Aortic atherosclerosis active Dallas Le MD Screening active Dallas Le MD Palpitations;NML TSH active Dallas Salguero Overweight active Dallas Le MD Cardiology examination active Darrell Merritt MD Hypertension active Isiah Merritt MD Preoperative cardiovascular evaluation active Isiah Merritt MD Exposure to SARS-associated coronavirus;neg igg active Dallas Le MD ENCOUNTERS Date Type Provider Location Encounter Diag nosis - In-person encounter Office Visit Isiah Merritt MD [place] [facility] - In-person encounter Office Visit Isiah Merritt MD [place] [facility] Preoperative cardiovascular evaluation - In-person encounter Office Visit Isiah Merritt MD [place] [facility] - In-person encounter Office Visit Isiah Merritt MD [place] [facility] Cardiology examinationHypertension - In-person encounter Office Visit Isiah Merritt MD [place] [facility] - In-person encounter Office Visit Isiah Merritt MD [place] [facility] - In-person encounter Office Visit [facility] - In-person encounter Office Visit Is[facility] - In-person encounter Office Visit Dallas Le MD [facility] DyslipidemiaElevated Lp(a)PrediabetesHeterozygous methylenetetrahydrofolate reductase mutationFamily History of CVA or Stroke:Family History of Hypertension:Abnormal labsElevated C-reative proteinElevated TSHDyspnea on exertionPalpitationsHyperlipid emia;with nml crpAortic atherosclerosisScreeningPalpit ations;NML TSHOverweightExposure to SARS-associated coronavirus;neg igg - In-person encounter Office Visit Isiah Merritt MD [place] [facility] - In-person encounter Office Visit Chad Christine MD [facility] Vitamin D deficiency - In-person encounter Office Visit Chad Christine MD [facility] - In-person encounter Office Visit Chad [facility] - In-person encounter Office Visit Chad [facility] - In-person encounter Office Visit [facility] - In-person encounter Office Visit Rigo Ochoa [facility] Coronary atherosclerosis due to calcified coronary lesion VITAL SIGNS Date Observation Value Provider Body Mass Index (Ratio) 4.59 kg/m2 Twan Merritt MD blood pressure, diastolic 84 mm[Hg] Vi evan [facility] blood pressure, systolic 148 mm[Hg] [facility] in [facility] pulse rate 70 /min [facility] respiratory rate E&M 12 /min [facility] oxygen saturation, oximetry 100 % [facility] weight E&M 161 [lb_av] [facility] blood pressure, cuff size regular Vi evan [facility] height E&M 157 [in_i] [facility] blood pressure, diastolic 82 mm[Hg] nk[facility] blood pressure, systolic 156 mm[Hg] Alea kLogic blood pressure, diastolic 82 mm[Hg] [facility], systolic 156 mm[Hg] Alea [place] Body Mass Index (Ratio) 4.48 kg/m2 Robe rt Anthony Merritt MD pulse rate 74 /min Elisa Gavin blood pressure, diastolic 82 mm[Hg] Alejandro Gavin blood pressure, systolic 156 mm[Hg] She earnest Gavin oxygen saturation, oximetry 98 % Elisa Gavin respiratory rate E&M 16 /min Elisa Gavin weight E&M 157 [lb_av] Elisa Gavin blood pressure, cuff size regular Alejandro Gavin height E&M 157 [in_i] Elisa Gavin Body Mass Index (Ratio) 24.30 kg/m2 Robe rt Anthony Merritt MD blood pressure, diastolic 84 mm[Hg] Ni nanetteamy Liliana 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 blood pressure, systolic 138 mm[Hg] Luke liv Liliana [employer]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 oxygen saturation, oximetry 98 % Ariana Chen respiratory rate E&M 16 /min Ariana ferrer pulse rate 78 /min Isiah Merritt MD weight E&M 150.6 [lb_av] Ariana Chen height E&M 66 [in_i] Ariana Cehn Body Mass Index (Ratio) 27.44 kg/m2 Robe rt Anthony Merritt MD blood pressure, diastolic 84 mm[Hg] Li nkLogic blood pressure, systolic 156 mm[Hg] Alea kLogic blood pressure, diastolic 84 mm[Hg] Li zbeth Duran blood pressure, systolic 156 mm[Hg] Liseth aida Duran blood pressure, cuff size regular Xena zbeth Duran pulse rate 70 /min Mel Duran oxygen saturation, oximetry 97 % Mel Duran respiratory rate E&M 16 /min [facility] weight E&M 170 [lb_av] Mel Duran height E&M 66 [in_i] Mel Duran Body Mass Index (Ratio) 26.14 kg/m2 Robe rt Anthony Merritt MD oxygen saturation, oximetry 98 % Chastity Ellis respiratory rate E&M 16 /min Chastit y Ellis pulse rate 68 /min Chastity Ellis blood pressure, diastolic 90 mm[Hg] Ch astity Ellis blood pressure, systolic 146 mm[Hg] Kayla stity Ellis weight E&M 162 [lb_av] Chastity Ellis height E&M 66 [in_i] Chastity Ellis Body Mass Index (Ratio) 27.11 kg/m2 Robe rt Anthony Merritt MD blood pressure, diastolic 80 mm[Hg] Xena nkLog blood pressure, systolic 126 mm[Hg] Alea kLogic blood pressure, cuff size regular Ke rri Kevin blood pressure, diastolic 80 mm[Hg] Ke rri Riverauenenfbetzaida blood pressure, systolic 126 mm[Hg] George Wilson oxygen saturation, oximetry 97 % Jessi Wilson respiratory rate E&M 16 /min Jessi thakkar pulse rate 85 /min Jessi Guerra [facility] weight E&M 168 [lb_av] Jessi Guerra [facility] height E&M 66 [in_i] Jessi Guerra [facility] Body Mass Index (Ratio) 27.63 kg/m2 Robe rt Anthony Merritt MD blood pressure, diastolic 70 mm[Hg] Doris Stewart blood pressure, systolic 126 mm[Hg] Lisa Stewart oxygen saturation, oximetry 99 % Ankita Stewart respiratory rate E&M 16 /min Prerna Stewart pulse rate 74 /min Ankita rae weight E&M 171.2 [lb_av] Ankita jimenez height E&M 66 [in_i] Ankita rae Body Mass Index (Ratio) 26.56 kg/m2 Twan Merritt MD blood pressure, diastolic 80 mm[Hg] Doris Stewart blood pressure, systolic 124 mm[Hg] Lisa Stewart oxygen saturation, oximetry 98 % Ankita Stewart respiratory rate E&M 18 /min Prerna Stewart pulse rate 72 /min Ankita rae weight E&M 164.6 [lb_av] Ankita jimenez height E&M 66 [in_i] Ankita Bae bhumika Body Mass Index (Ratio) 26.31 kg/m2 Beatrice Le MD blood pressure, diastolic 83 mm[Hg] To ns Wright blood pressure, systolic 144 mm[Hg] Ton [facility] respiratory rate E&M 16 /min Tonsha Wright weight E&M 163 [lb_av] Tonsha Wright height E&M 66 [in_i] Tonsha Wright Body Mass Index (Ratio) 29.02 kg/m2 Rakel Mattson blood pressure, diastolic 80 mm[Hg] Doris Stewart blood pressure, systolic 132 mm[Hg] Lisa Power Stewart oxygen saturation, oximetry 98 % Ankita Stewart respiratory rate E&M 18 /min Prerna Stewart pulse rate 80 /min Ankita rae weight E&M 179.8 [lb_av] Ankita jimenez height E&M 66 [in_i] Ankita Bae nsbhumika Body Mass Index (Ratio) 26.63 kg/m2 Selvin Christine MD oxygen saturation, oximetry 98 % Chastity Ellis respiratory rate E&M 16 /min Chastit y Ellis blood pressure, diastolic 80 mm[Hg] Ch astity Ellis blood pressure, systolic 142 mm[Hg] Kayla stity Ellis pulse rate 66 /min Chastity Ellis weight E&M 165 [lb_av] Chastity Ellis height E&M 66 [in_i] [facility] Ellis Body Mass Index (Ratio) 25.34 kg/m2 Selvin Christine MD blood pressure, diastolic 78 mm[Hg] Wei [facility] blood pressure, systolic 120 mm[Hg] Campos rodriguez Iola oxygen saturation, oximetry 99 % [facility] respiratory rate E&M 16 /min [facility] pulse rate 118 /min [facility] weight E&M 157 [lb_av] [facility] [in_i] [facility] Body Mass Index (Ratio) 26.14 kg/m2 Selvin Christine MD blood pressure, diastolic 82 mm[Hg] Jose Alfredo Kulkarni blood pressure, systolic 128 mm[Hg] Germania Kulkarni oxygen saturation, oximetry 98 % Omi Kulkarni respiratory rate E&M 16 /min Omi Kulkarni pulse rate 77 /min Omi arreola weight E&M 162 [lb_av] Omi [facility] height E&M 66 [in_i] Omi [facility] Body Mass Index (Ratio) 25.50 kg/m2 Selvin Christine MD blood pressure, diastolic 78 mm[Hg] Marc heath Katalina blood pressure, systolic 112 mm[Hg] Lalo turcios [facility] oxygen saturation, oximetry 98 % [facility] respiratory rate E&M 15 /min [facility] pulse rate 66 /min [facility] blood pressure, resting No Magdi kyle [facility] weight E&M 158 [lb_av] [facility] height E&M 66 [in_i] [facility] Body Mass Index (Ratio) 25.82 kg/m2 Selvin Christine MD pulse rate 65 /min Marli Flores R N oxygen saturation, oximetry 98 % Marli Flores RN respiratory rate E&M 16 /min Marli Flores RN blood pressure, diastolic 72 mm[Hg] Yosef Flores RN blood pressure, systolic 118 mm[Hg] Vyas RN weight E&M 160 [lb_av] Marli Flores R N height E&M 66 [in_i] Marli Avalos N ALLERGIES Allergy Name Onset Date Reaction Criticality Status LOVASTATIN MYALGIA MYALGIA Low Criticality acti ve CRESTOR MYALGIA MYALGIA Low Criticality acti ve ZETIA Myalgia Myalgia High Criticality act tha INH High Criticality active RESULTS Date Observation Value Provider Reference Range Interpretation Location 3 calcium, serum 9.6 mg/dL [facility] 8.7-10.3 3 carbon dioxide, venous blood 24 mmol/L [facility] 20-29 3 chloride, serum 99 mmol/L [facility] 96-106 3 potassium, serum 4.2 mmol/L [facility] 3.5-5.2 3 sodium, serum 138 mmol/L [facility] 270-711 0651/11/2 3 urea nitrogen/creatinine ratio, serum 20 [facility] 12-28 3 creatinine, serum 1.05 mg/dL [facility] 0.57-1.00 High 3 urea nitrogen, blood 21 mg/dL [facility] 8-27 3 blood glucose, random 114 mg/dL [facility] 70-99 High 8 lipoprotein, beta, serum, point, quantitative, calculated 71 mg/dL [facility] 0-99 8 HDL cholesterol, serum 45 mg/dL [facility] >39 8 triglyceride, serum, random 63 mg/dL [facility] 0-149 8 cholesterol, serum 129 mg/dL [facility] 552-112 1068/11/0 8 alanine aminotransferase (SGPT), serum 20 1/L [facility] 0-32 8 aspartate aminotransferase (SGOT), serum 22 1/L [facility] 0-40 8 alkaline phosphatase, serum 69 1/L [facility] 44-121 8 bilirubin, serum, total 0.7 mg/dL [facility] 0.0-1.2 8 albumin/globulin ratio, serum 1.8 [facility] 1.2-2.2 8 globulin, serum 2.3 [facility] 1.5-4.5 8 albumin, serum 4.2 g/dL [facility] 3.9-4.9 8 protein, total, serum 6.5 g/dL [facility] 6.0-8.5 8 calcium, serum 9.2 mg/dL [facility] 8.7-10.3 8 carbon dioxide, venous blood 27 mmol/L [facility] 20-29 8 chloride, serum 105 mmol/L [facility] 96-106 8 potassium, serum 3.8 mmol/L [facility] 3.5-5.2 8 sodium, serum 144 mmol/L [facility] 400-728 3835/11/0 8 urea nitrogen/creatinine ratio, serum 24 [facility] 12-28 8 creatinine, serum 0.84 mg/dL [facility] 0.57-1.00 8 urea nitrogen, blood 20 mg/dL [facility] 8-27 8 blood glucose, random 101 mg/dL [facility] 70-99 High 9 lipoprotein, beta, serum, point, quantitative, calculated 112 mg/dL [facility] 0-99 High 9 HDL cholesterol, serum 57 mg/dL [facility] >39 9 triglyceride, serum, random 50 mg/dL [facility] 0-149 9 cholesterol, serum 179 mg/dL [facility] 167-041 3053/10/1 9 alanine aminotransferase (SGPT), serum 27 1/L [facility] 0-32 9 aspartate aminotransferase (SGOT), serum 26 1/L [facility] 0-40 9 alkaline phosphatase, serum 103 1/L [facility] 44-121 9 bilirubin, serum, total 1.1 mg/dL [facility] 0.0-1.2 9 albumin/globulin ratio, serum 1.7 [facility] 1.2-2.2 9 globulin, serum 2.6 [facility] 1.5-4.5 9 albumin, serum 4.5 g/dL [facility] 3.8-4.8 9 protein, total, serum 7.1 g/dL [facility] 6.0-8.5 9 calcium, serum 9.3 mg/dL [facility] 8.7-10.3 9 carbon dioxide, venous blood 25 mmol/L [facility] 20-29 9 chloride, serum 104 mmol/L [facility] 96-106 9 potassium, serum 4.0 mmol/L [facility] 3.5-5.2 9 sodium, serum 142 mmol/L [facility] 317-649 5570/10/1 9 urea nitrogen/creatinine ratio, serum 22 [facility] 12-28 9 creatinine, serum 0.93 mg/dL [facility] 0.57-1.00 9 urea nitrogen, blood 20 mg/dL [facility] 8-27 9 blood glucose, random 93 mg/dL [facility] 70-99 1 lipoprotein, beta, serum, point, quantitative, calculated 96 mg/dL [facility] 0-99 1 HDL cholesterol, serum 54 mg/dL [facility] >39 1 triglyceride, serum, random 71 mg/dL [facility] 0-149 1 cholesterol, serum 164 mg/dL [facility] 188-680 6088/04/3 0 ferritin, serum 150 ng/mL [facility] 15-150 0 thyroid stimulating hormone, serum 3.730 u[IU]/mL [facility] 0.450-4.500 0 thyroxine, serum, free 1.24 ng/dL [facility] 0.82-1.77 0 iron saturation percent, serum 38 % [facility] 15-55 0 iron, serum 105 ug/dL [facility] 27-139 0 iron binding capacity, unsaturated 174 ug/dL [facility] 950-743 7051/04/3 0 iron binding capacity, total 279 ug/dL [facility] 975-105 2920/04/3 0 lipoprotein, beta, serum, point, quantitative, calculated 121 mg/dL [facility] 0-99 High 0 HDL cholesterol, serum 53 mg/dL [facility] >39 0 triglyceride, serum, random 54 mg/dL [facility] 0-149 0 cholesterol, serum 184 mg/dL [facility] 513-603 1466/04/3 0 alanine aminotransferase (SGPT), serum 18 1/L [facility] 0-32 0 aspartate aminotransferase (SGOT), serum 21 1/L [facility] 0-40 0 alkaline phosphatase, serum 69 1/L [facility] 39-117 0 bilirubin, serum, total 0.6 mg/dL [facility] 0.0-1.2 0 albumin/globulin ratio, serum 2.0 [facility] 1.2-2.2 0 globulin, serum 2.2 [facility] 1.5-4.5 0 albumin, serum 4.3 g/dL [facility] 3.8-4.8 0 protein, total, serum 6.5 g/dL [facility] 6.0-8.5 0 calcium, serum 9.3 mg/dL [facility] 8.7-10.3 0 carbon dioxide, venous blood 26 mmol/L [facility] 20-29 0 chloride, serum 107 mmol/L [facility] 96-106 High 0 potassium, serum 4.6 mmol/L [facility] 3.5-5.2 0 sodium, serum 145 mmol/L [facility] 134-144 High 0 urea nitrogen/creatinine ratio, serum 19 [facility] 12-28 0 eGFR if 92 mL/min/{1 .73_m2} [facility] >59 0 eGFR if not 79 mL/min/{1 .73_m2} [facility] >59 0 creatinine, serum 0.78 mg/dL [facility] 0.57-1.00 0 urea nitrogen, blood 15 mg/dL [facility] 8-27 0 blood glucose, random 105 mg/dL [facility] 65-99 High 0 hemoglobin A1C, blood, as % of total hemoglobin 5.6 % [facility] 4.8-5.6 0 basophil count, absolute 0.1 x10E3/uL [facility] 0.0-0.2 0 Eosinophil Absolute Count 0.1 X10E3/UL [facility] 0.0-0.4 0 monocyte count, blood, automated 0.4 X10E3/UL [facility] 0.1-0.9 0 lymphocyte count, blood, automated 1.7 X10E3/UL [facility] 0.7-3.1 0 Absolute Neutrophils 2.6 X10E3/UL [facility] 1.4-7.0 0 basophils as percent of blood leukocytes 1 % [facility] Not Estab. 0 eosinophils as percent of blood leukocytes 3 % [facility] Not Estab. 0 monocytes as percent of blood leukocytes 8 % [facility] Not Estab. 0 lymphocytes as percent of blood leukocytes 34 % [facility] Not Estab. 0 neutrophils as percent of blood leukocytes 54 % [facility] Not Estab. 0 platelet count 230 X10E3/UL [facility] 377-474 0560/04/3 0 red blood cell distribution width 12.4 % [facility] 11.7-15.4 0 mean corpuscular hemoglobin concentration, RBC 34.1 G/DL [facility] 31.5-35.7 0 mean corpuscular hemoglobin, RBC 33.9 pg [facility] 26.6-33.0 High 0 mean corpuscular volume, RBC 99 fL [facility] 79-97 High 0 hematocrit, blood 42.5 % [facility] 34.0-46.6 0 hemoglobin, blood 14.5 g/dL [facility] 11.1-15.9 0 erythrocyte (RBC) count 4.28 X10E6/UL [facility] 3.77-5.28 0 leukocyte count, blood 4.9 X10E3/UL [facility] 3.4-10.8 1 ferritin, serum 98 ng/mL [facility] 15-150 1 B-12, serum 852 pg/mL [facility] 232-1245 1 c-reactive protein, quantitative, serum 1.22 mg/L [facility] 0.00-3.00 1 iron saturation percent, serum 51 % [facility] 15-55 1 iron, serum 140 ug/dL [facility] 27-139 High 1 iron binding capacity, unsaturated 132 ug/dL [facility] 235-857 9951/07/3 1 iron binding capacity, total 272 ug/dL [facility] 388-995 2608/01/1 7 thyroid stimulating hormone, serum 4.180 u[IU]/mL [facility] 0.450-4.500 7 thyroxine, serum, free 1.51 ng/dL [facility] 0.82-1.77 6 hemoglobin A1C, blood, as % of total hemoglobin 5.4 % [facility] 4.8-5.6 7 lipoprotein, beta, serum, point, quantitative, calculated 126 mg/dL [facility] 0-99 High 7 very low density lipoproteins 11 mg/dL [facility] 5-40 7 HDL cholesterol, serum 62 mg/dL [facility] >39 7 triglyceride, serum, random 55 mg/dL [facility] 0-149 7 cholesterol, serum 199 mg/dL [facility] 148-860 4965/01/1 7 alanine aminotransferase (SGPT), serum 21 1/L [facility] 0-32 7 aspartate aminotransferase (SGOT), serum 28 1/L [facility] 0-40 7 alkaline phosphatase, serum 78 1/L [facility] 39-117 7 bilirubin, serum, total 1.2 mg/dL [facility] 0.0-1.2 7 albumin/globulin ratio, serum 2.0 [facility] 1.2-2.2 7 globulin, serum 2.3 [facility] 1.5-4.5 7 albumin, serum 4.6 g/dL [facility] 3.6-4.8 7 protein, total, serum 6.9 g/dL [facility] 6.0-8.5 7 calcium, serum 9.5 mg/dL [facility] 8.7-10.3 7 carbon dioxide, venous blood 23 mmol/L [facility] 20-29 7 chloride, serum 101 mmol/L [facility] 96-106 7 potassium, serum 4.1 mmol/L [facility] 3.5-5.2 7 sodium, serum 140 mmol/L [facility] 527-396 9390/01/1 7 urea nitrogen/creatinine ratio, serum 15 [facility] 12-28 7 eGFR if 72 mL/min/{1 .73_m2} [facility] >59 7 eGFR if not 62 mL/min/{1 .73_m2} [facility] >59 7 creatinine, serum 0.96 mg/dL [facility] 0.57-1.00 7 urea nitrogen, blood 14 mg/dL [facility] 8-27 7 blood glucose, random 90 mg/dL [facility] 65-99 9 vitamin D 25-hydroxy, serum 27.1 ng/mL [facility] >29.9 Low 9 hemoglobin A1C, blood, as % of total hemoglobin 5.5 % [facility] <5.7 9 microalbumin/creatin ine ratio, urine 3.0 ug/mg [facility] <7.5 9 microalbumin/total urine volume 3.1 mg/L [facility] 9 creatinine, random, urine 103.4 mg/dL [facility] 20.0-300.0 9 vitamin b12, serum >2000 pg/mL [facility] 232-1245 High 9 thyroid stimulating hormone, serum 3.070 u[IU]/mL [facility] 0.400-4.500 9 triiodothyronine (T3), serum 78 ng/dL [facility] 80-200 Low 9 insulin, serum 5.5 u[IU]/mL [facility] 1.0-24.0 9 homocysteine, plasma, quantitative 9.2 umol/L [facility] <15.0 9 thyroxine, serum, free 1.3 ng/dL [facility] 0.7-1.8 9 folate, serum >20.0 ng/mL [facility] 4.8-24.2 9 C-reactive protein, by highly sensitive test 0.5 mg/L [facility] <1.0 9 eGFR if 74 mL/min/{1 .73_m2} [facility] >60 9 eGFR if not 64 mL/min/{1 .73_m2} [facility] >60 9 bilirubin, serum, total 1.0 mg/dL [facility] <1.3 9 aspartate aminotransferase (SGOT), serum 25 1/L [facility] <41 9 alanine aminotransferase (SGPT), serum 24 1/L [facility] <46 9 globulin, serum 2.2 [facility] 1.8-3.8 9 protein, total, serum 6.4 g/dL [facility] 6.1-8.0 9 albumin, serum 4.2 g/dL [facility] 3.5-5.5 9 creatinine, serum 0.94 mg/dL [facility] 0.55-1.00 9 urea nitrogen, blood 14 mg/dL [facility] 8-23 9 carbon dioxide, serum, total 28 mmol/L [facility] 21-33 9 chloride, serum 103 mmol/L [facility] 95-108 9 potassium, serum 3.8 mmol/L [facility] 3.5-5.1 9 sodium, serum 142 mmol/L [facility] 737-101 4098/03/1 9 calcium, serum 9.2 mg/dL [facility] 8.5-10.5 9 blood glucose 96 mg/dL [facility] 65-99 9 thyroid peroxidase autoantibody, serum 8 [iU]/mL [facility] <35 9 thyroglobulin antibody <10 IU/mL [facility] <115 5 number of large High Density Lipoprotein particles 8.4 umol/L [facility] >=4.8 5 Large VLDL Particle 1.0 nmol/L [facility] <=2.7 5 LDL Size 21.3 nm [facility] >20.5 5 Small Low Density Lipoprotein Particle 332 nmol/L [facility] <=527 5 cholesterol, serum 175 mg/dL [facility] 605-510 2464/08/2 5 triglyceride, serum, fasting 53 mg/dL [facility] 0-149 5 HDL cholesterol, serum 57 mg/dL [facility] >39 5 lipoprotein, beta, serum, point, quantitative, calculated 107 mg/dL [facility] 0-99 High 5 LDL particle concentration (lipoprotein panel), risk categories correspond to NCEP categories for LDL cholesterol (on a percentile equivalent basis) 1413 nmol/L [facility] <1000 High 2 vitamin D 25-hydroxy, serum 46.9 ng/mL [facility] 30.0-80.0 2 hemoglobin A1C, blood, as % of total hemoglobin 5.5 % [facility] <5.7 2 microalbumin/creatin ine ratio, urine 3.4 ug/mg [facility] <7.5 2 microalbumin/total urine volume 4.7 mg/L [facility] 2 creatinine, random, urine 139.4 mg/dL [facility] 20.0-300.0 2 thyroid stimulating hormone, serum 4.550 u[IU]/mL [facility] 0.400-4.500 High 2 insulin, serum 5.2 u[IU]/mL [facility] 1.0-24.0 2 homocysteine, plasma, quantitative 8.3 umol/L [facility] <15.0 2 thyroxine, serum, free 1.3 ng/dL [facility] 0.7-1.8 2 triiodothyronine, free, serum 2.5 pg/mL [facility] 2.0-4.4 2 ferritin, serum 127 ng/mL [facility] 18-300 2 C-reactive protein, by highly sensitive test 0.9 mg/L [facility] <1.0 2 eGFR if 82 mL/min/{1 .73_m2} [facility] >60 2 eGFR if not 71 mL/min/{1 .73_m2} [facility] >60 2 bilirubin, serum, total 0.9 mg/dL [facility] <1.3 2 aspartate aminotransferase (SGOT), serum 23 1/L [facility] <41 2 alanine aminotransferase (SGPT), serum 21 1/L [facility] <46 2 globulin, serum 2.4 [facility] 1.8-3.8 2 protein, total, serum 6.9 g/dL [facility] 6.1-8.0 2 albumin, serum 4.5 g/dL [facility] 3.5-5.5 2 creatinine, serum 0.87 mg/dL [facility] 0.55-1.00 2 urea nitrogen, blood 14 mg/dL [facility] 8-23 2 carbon dioxide, serum, total 28 mmol/L [facility] 21-33 2 chloride, serum 102 mmol/L [facility] 95-108 2 potassium, serum 4.1 mmol/L [facility] 3.5-5.1 2 sodium, serum 142 mmol/L [facility] 573-231 6751/08/2 2 calcium, serum 9.1 mg/dL [facility] 8.5-10.5 2 blood glucose 94 mg/dL [facility] 65-99 9 number of large High Density Lipoprotein particles 5.6 umol/L [facility] >=4.8 9 Large VLDL Particle 0.8 nmol/L [facility] <=2.7 9 LDL Size 21.0 nm [facility] >20.5 9 Small Low Density Lipoprotein Particle 549 nmol/L [facility] <=527 High 9 cholesterol, serum 158 mg/dL [facility] 873-675 4933/01/2 9 triglyceride, serum, fasting 73 mg/dL [facility] 0-149 9 HDL cholesterol, serum 46 mg/dL [facility] >39 9 lipoprotein, beta, serum, point, quantitative, calculated 97 mg/dL [facility] 0-99 9 LDL particle concentration (lipoprotein panel), risk categories correspond to NCEP categories for LDL cholesterol (on a percentile equivalent basis) 1463 nmol/L [facility] <1000 High 6 vitamin D 25-hydroxy, serum 46.8 ng/mL [facility] 30.0-80.0 6 microalbumin/creatin ine ratio, urine 4.3 ug/mg [facility] <7.5 6 microalbumin/total urine volume 4.6 mg/L [facility] 6 creatinine, random, urine 105.9 mg/dL [facility] 20.0-300.0 6 hemoglobin A1C, blood, as % of total hemoglobin 5.5 % [facility] <5.7 6 mean platelet volume 9.6 fL [facility] 7.2-13.0 6 platelet count 250 K/uL [facility] 938-826 2259/01/2 6 red blood cell distribution width 13.7 % [facility] 11.8-14.9 6 mean corpuscular hemoglobin concentration, RBC 32.2 g/dL [facility] 31.0-37.0 6 mean corpuscular hemoglobin, RBC 31.9 pg [facility] 27.0-33.0 6 mean corpuscular volume, RBC 99.1 fL [facility] 79.0-99.0 High 6 hematocrit, blood 42.5 % [facility] 32.8-48.4 6 hemoglobin, blood 13.7 g/dL [facility] 11.0-16.7 6 erythrocyte count, whole blood 4.29 MILLION/U L [facility] 3.46-5.52 6 leukocyte count, blood 5.1 10*3/mm3 [facility] 3.7-11.0 6 thyroid stimulating hormone, serum 2.390 u[IU]/mL [facility] 0.400-4.500 6 homocysteine, plasma, quantitative 8.2 umol/L [facility] <15.0 6 ferritin, serum 123 ng/mL [facility] 18-300 6 C-reactive protein, by highly sensitive test 1.7 mg/L [facility] <1.0 High 6 eGFR if 81 mL/min/{1 .73_m2} [facility] >60 6 eGFR if not 70 mL/min/{1 .73_m2} [facility] >60 6 bilirubin, serum, total 0.7 mg/dL [facility] <1.3 6 aspartate aminotransferase (SGOT), serum 23 1/L [facility] <41 6 alanine aminotransferase (SGPT), serum 24 1/L [facility] <46 6 globulin, serum 2.3 [facility] 1.8-3.8 6 protein, total, serum 6.4 g/dL [facility] 6.1-8.0 6 albumin, serum 4.1 g/dL [facility] 3.5-5.5 6 creatinine, serum 0.88 mg/dL [facility] 0.55-1.00 6 urea nitrogen, blood 15 mg/dL [facility] 8-23 6 carbon dioxide, serum, total 25 mmol/L [facility] 21-33 6 chloride, serum 105 mmol/L [facility] 95-108 6 potassium, serum 4.3 mmol/L [facility] 3.5-5.1 6 sodium, serum 141 mmol/L [facility] 297-833 2021/01/2 6 calcium, serum 9.2 mg/dL [facility] 8.5-10.5 6 blood glucose 89 mg/dL [facility] 65-99 6 thyroid stimulating hormone, serum 3.760 ??IU/ML [facility] 0.270 - 4.200 6 magnesium, serum 1.8 mg/dL [facility] 1.6 - 2.4 6 anion gap, serum 10.9 [facility] - 6 albumin/globulin ratio, serum 1.9 g/dL [facility] 1.1 - 2.5 6 globulin, serum 2.3 [facility] 2.3 - 3.8 6 urea nitrogen/creatinine ratio, serum 18.8 [facility] - Estimated Glomerular Filtration Rate (calc) 77.5 (?) [facility] 59.0 - 6 chloride, serum 103.1 mmol/L [facility] 98.0 - 107.0 6 potassium, serum 4.1 mmol/L [facility] 3.5 - 5.1 6 sodium, serum 143.0 mmol/L [facility] 136.0 - 145.0 6 creatinine, serum 0.8 mg/dL [facility] 0.5 - 1.0 6 carbon dioxide, venous blood 29.0 mmol/L [facility] 23.0 - 31.0 6 albumin, serum 4.3 g/dL [facility] 3.5 - 5.2 6 calcium, serum 9.4 mg/dL [facility] 8.6 - 10.2 6 aspartate aminotransferase (SGOT), serum 20.0 1/L [facility] 0.0 - 32.0 6 alkaline phosphatase, serum 81.0 1/L [facility] 40.0 - 130.0 alanine aminotransferase (SGPT), serum 18.0 1/L [facility] 0.0 - 33.0 protein, total, serum 6.6 g/dL [facility] 6.6 - 8.7 bilirubin, serum, total 0.7 mg/dL [facility] 0.0 - 1.2 2016/10/2 6 urea nitrogen, blood 15.0 mg/dL [facility] 8.0 - 23.0 6 blood glucose, random 103.0 mg/dL [facility] 74.0 - 99.0 High 6 hemoglobin A1C, blood, as % of total hemoglobin 5.4 % [facility] 4.0 - 5.6 HISTORY OF MEDICATION USE Medication Status Instructions Dates Provider Indications Com ments spironolactone 25 mg tablet active Take 1 tablet by mouth once a day 08/04 Marli Flores RN amlodipine 10 mg tablet active Take 1/2 tablet by mouth once a day Marli Flores RN amlodipine 5 mg tablet completed Take 1 tablet by mouth once a day 12/26 - Adalberto Ford NP hydrochlorothiazide 12.5 mg tablet active TAKE 1 TABLET BY MOUTH EVERY DAY 12/17 Casandra trevizo metoprolol succinate 25 mg tablet extended release 24 hr active TAKE 1 TABLET BY MOUTH EVERY DAY 12/17 Adalberto Ford NP amlodipine 5 mg tablet completed TAKE 1 TABLET BY MOUTH EVERY DAY 12/17 - 12/26 Jessi Wilson phentermine 15 mg capsule active TAKE 1 CAPSULE BY MOUTH EVERY DAY Ariana Chen Folbic 2.5-25-2 mg tablet completed TAKE 1 TABLET BY MOUTH EVERY DAY 03/10 - Shar León SureClick 140 mg/mL pen injector active USE ONE INJECTION SUBCUTANEOUSLY EVERY TWO WEEKS 12/24 Anne Medina hydrochlorothiazide 12.5 mg tablet completed Take 1 tablet by mouth once a day 12/06 - 12/17 Adalberto Ford NP metoprolol succinate 25 mg tablet extended release 24 hr completed Take 1 tablet by mouth once a day 11/29 - 12/17 Adalberto Ford NP amlodipine 5 mg tablet completed Take 1 tablet by mouth once a day 11/20 - 12/17 Adalberto Ford NP Repatha SureClick 140 mg/mL pen injector completed INJECT THE CONTENTS OF 1 PEN SUBCUTANEOUSLY EVERY 2 WEEKS - 12/24 Anne Medina Folbic 2.5-25-2 mg tablet completed Take 1 tablet by mouth once a day - 03/10 Adalberto Ford NP pravastatin 10 mg tablet completed Take 1 tablet by mouth at bedtime - 11/20 Melaida Duran ferrous sulfate 325 mg (65 mg iron) tablet completed ONE PER DAY - Shar [place] Folbic 2.5-25-2 mg tablet completed TAKE 1 TABLET BY MOUTH EVERY DAY 03/07 - Jessi Balesatha SureClick 140 mg/mL pen injector completed USE ONE INJECTION SUBCUTANEOUSLY EVERY TWO WEEKS 11/09 - 02/27 Mary Corral magnesium oxide 400 mg magnesium tablet active Take 1 tablet by mouth once a day Adalberto Ford NP Folbic 2.5-25-2 mg tablet completed TAKE ONE TABLET BY MOUTH ONCE DAILY 03/04 - 03/07 Kimmie Sheikh Repatha SureClick 140 mg/mL pen injector completed Use 1 every two weeks 11/27 - 11/09 Cody Houser RN PRALUENT 150 MG/ML SUBCUTANEOUS SOLUTION AUTO-INJECTOR completed inject 150 mg every 2 weeks subQ 11/24 - 11/27 Cody Houser RN STEROID INJECTIONS completed once every 2 months to the scalp - 07/28 Ariana Chen Rogaine 5% foam active once a day Ankita Stewart clobetasol-levoceti rizine 0.05-2% shampoo active once a day Ankiat Stewart NUTRAFOL active 4 tablet once a day Ankita Stewart ZETIA 10 MG ORAL TABLET completed ONE TAB. DAILY 04/20 - 03/04 Ankita Stewart pravastatin 10 mg tablet completed 1 tablet once a day 03/20 - 07/28 Jessi Wilson ferrous sulfate 325 mg (65 mg iron) tablet completed once a day 02/24 - Kimmie Sheikh ASPIRIN 81 81 MG TBEC completed 1 tablet by mouth once a day 02/22 - 11/20 Mel Roger ZETIA 10 MG ORAL TABLET completed ONE TAB. DAILY 02/22 - 03/20 Emir Baron CRESTOR 20 MG ORAL TABLET completed ONE TAB. DAILY 02/22 - 03/20 Emir Baron Colace 100 mg capsule active 1 tablet once a day Ankita Stewart coenzyme Q10-vit E-vit E mixed 100-20-15 mg capsule completed capsule by mouth once a day - 11/20 Mel Duran BUPROPION HCL 100 MG ORAL TABLET completed 1 tab by mouth daily, if not effective after 1 week may increase to 1 tab twice daily 09/17 - 02/22 Dallas Le MD NALTREXONE HCL 50 MG ORAL TABLET completed 1/2 tab by mouth daily, if not effective after 1 week may increase to 1/2 tab twice daily 09/17 - 02/22 Dallas Le MD [facility] PROBIOTIC active Take 1 tablet once a day 09/15 Jessi Wilson K2 MK7 200MCG completed Take 1 tablet once a day 09/15 - Shar [place] cholecalciferol (vitamin D3) 125 mcg (5,000 unit) tablet active 1 tablet by mouth once a day Ankita Stewart Folbic 2.5-25-2 mg tablet completed take one tab every other day - 03/04 Ankita Stewart Fish Oil 340-1,000 mg capsule completed Take 1 capsule by mouth once a day - Shar [place] Evista 60 mg tablet active Take 1 table t by mouth once a day Jessi Wilson Endur-Acin 500 mg tablet extended release completed 1000 mg once a day - 07/28 Ankiat Stewart aspirin 81 mg tablet,delayed release (DR/EC) completed Take 1 tablet by mouth once a day - 07/28 Jessi Wilson PRAVASTATIN SODIUM 10 MG TAB completed TAKE ONE TABLET BY MOUTH ONCE DAILY 09/30 - 02/22 Dallas Le MD SOCIAL HISTORY Date Observation Value Provider Underweight yes Isiah Merritt MD smoking/tobacco cess ation, patient education and counseling yes Isiah Merritt MD smoking status Former smoker Isiah Merritt MD social history revie wed E&M reviewed - no changes required Isiah Merritt MD Underweight yes Isiah Merritt MD smoking, year quit 2014 Isiah Merritt MD cigarette use yes Isiah Merritt MD smoking/tobacco cess ation, patient education and counseling yes Isiah Merritt MD smoking status Former smoker Isiah Merritt MD social history revie wed E&M reviewed - no changes required Isiah Merritt MD social history revie wed E&M reviewed - no changes required Adalberto Ford NP smoking, year quit 2014 Ariana byrd cigarette use yes Ariana Chen smoking status Former smoker Ariana Chen social history revie wed E&M reviewed - no changes required Adalberto Ford NP smoking, year quit 2014 Mel R rojasz cigarette use yes Mel Duran smoking status Former smoker Mel Duran social history revie wed E&M reviewed - no changes required Adalberto Ford NP smoking, year quit 2014 Jessi mcfarland cigarette use yes Jessi Dwaine mosqueda smoking status Former smoker Jessi Yudy miranda social history revie wed E&M reviewed - no changes required Isiah Merritt MD smoking, year quit 2014 Ankita Stewart cigarette use yes Ankita jimenez smoking status Former smoker Ankita Turner social history revie wed E&M reviewed - no changes required Isiah Merritt MD social history revie wed E&M reviewed - no changes required Isiah Merritt MD smoking, year quit 2014 Ankita Stewart cigarette use yes Ankita jimenez smoking status Former smoker Ankita Turner social history E&M Tobacco: 40 y ear smoker A lcohol: Rare beer - last one 3 weeks ago C affeine: 2 cups coffee daily Smoking History: Chasidy hayes is a former smoker. Dallas Le MD social history revie wed E&M reviewed - no changes required Dallas Le MD smoking, year quit 2014 Tonsha Mo ss cigarette use yes Tonsha Wright smoking status Former smoker Tonsha Wright number of grandchildren Isiah Sims RN smoking, year quit 2014 Ankita Stewart cigarette use yes Ankita jimenez smoking status Former smoker Ankita Turner social history E&M T obacco: 40 year smoker A lcohol: Rare beer - last one 3 weeks ago C affeine: 2 cups coffee daily Isiah Merritt MD social history revie wed E&M reviewed - no changes required Isiah Merritt MD smoking/tobacco cess ation, patient education and counseling yes Chastity Ellis smoking status Current every da y smoker Chastity Ellis smoking/tobacco cess ation, patient education and counseling yes [place] Landa smoking status Current every da y smoker Husam Landa social history E&M S moking History: P freddy currently smokes every day. P freddy has been counseled to quit. 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 She is now on Repatha and lipids are improved but were still above goal. I had her resume low-dose Pravastatin (which she previously tolerated), but she ended up stopping it due to some myalgias. She did try it a second time, but had to stop again. Since she has lost ~20 pounds, I am going to repeat lipids. Isiah Merritt MD [id number],C,B lood pressure is improved and at goal on Toprol and Amlodipine, which I will continue without change. Isiah Merritt MD [id number],C,S he was previously noted to have occasional PVC's with significant improvement after starting Magnesium 400mg qday, which I will continue without change. Isiah Merritt MD [id number],C,H er prior chest tightness/throbbing has resolved. Her echocardiogram showed normal LV systolic function and her stress test was negative fori schemia, though she did have a hypertensive response to exercise, and I started Toprol. Isiah Merritt MD [id number],C,B lood pressure was elevated again this visit. I am going to add Amlodipine 5mg qday for blood pressure control, which will also serve as an antianginal agent. Isiah Merritt MD [id number],C,T he patient has statin intolerance and did not tolerate Resvertarol or Rosuvastatin/Ezetimibe (she took both together) and then did not tolerate just the Ezetimibe. She is now on Repatha and lipids are improved but were still above goal. I had her resume low-dose Pravastatin (which she previously tolerated), but she ended up stopping it due to some myalgias. She is going to try and start taking it again, and I even suggesting just taking a half tablet for the first few weeks if needed. Isiah Merritt MD [id number],C,S he was previously noted to have occasional PVC's with significant improvement after starting Magnesium 400mg qday, which I will continue without change. Isiah Merritt MD [id number],C,T he patient reports recent symptoms of chest tightness/throbbing. It has been ~4 years since he last ischemic evaluation. I am going to check an exercise nuclear stress to evaluate for ischemia and an echocardiogram to evaluate cardiac anatomy and function. She did previously stop ASA due to increased bruising, which I was okay with holding since she had prior low risk findings on cardiac testing. Isiah Merritt MD [id number],C,T he patient has statin intolerance and did not tolerate Resvertarol or Rosuvastatin/Ezetimibe (she took both together) and then did not tolerate just the Ezetimibe. She has now been on Repatha for several months, and I am going to repeat a fasting lipid panel to evaluate response. Prior to the Repatha and other statins, she did tolerate very low dose Pravastatin but this did not provide adequate lipid lowering alone. I will continue Repatha alone but would consider resuming low dose Pravastatin if her lipids are not at goal. Isiah Merritt MD [id number],C,S he was previously noted to have occasional PVC's with significant improvement after starting Magnesium 400mg qday, which I will continue without change. Isiah Merritt MD [id number],C,S table without angina. She had a stress test that showed normal myocardial perfusion with normal LV function. She did stop ASA due to increased bruising. She has had low risk findings on diagnostic testing, and her risk factors are well controlled. She may continue to hold ASA. Isiah Merritt MD [id number],C,T he patient has statin intolerance and did not tolerate Resvertarol or Rosuvastatin/Ezetimibe (she took both together) and then did not tolerate just the Ezetimibe. She has now been on Repatha for several months, and I am going to repeat a fasting lipid panel to evaluate response. Prior to the Repatha and other statins, she did tolerate very low dose Pravastatin but this did not provide adequate lipid lowering alone. I will continue Repatha alone but would consider resuming low dose Pravastatin if her lipids are not at goal. Isiah Merritt MD [id number],C,S he was previously noted to have occasional PVC's with significant improvement after starting Magnesium 400mg qday, which I will continue without change. Isiah Merritt MD [id number],C,S table without angina. She had a stress test that showed normal myocardial perfusion with normal LV function. I will continue daily ASA with risk factor modification as below. Isiah Merritt MD Cardiology:The patie nt has statin intolerance and did not tolerate Resvertarol or Rosuvastatin/Ezetimibe (she took both together) and then did not tolerate just the Ezetimibe. She also tried low-dose Pravastatin. She is now on Repatha and lipids are well-controlled. Isiah Merritt MD Cardiology:Blood pre ssure is mildly elevated and was at her last visit as well. I am going to increase Amlodipine to 10mg qday. I will continue Toprol without change. Isiah Merritt MD Cardiology:She was p reviously noted to have occasional PVC's with significant improvement after starting Magnesium 400mg qday, which I will continue without change. Isiah Merritt MD Cardiology:Her prior chest tightness/throbbing previously resolved and has not recurred. Her echocardiogram showed normal LV systolic function and her stress test was negative for ischemia, though she did have a hypertensive response to exercise. I started Toprol, and she has had a very good clinical response. I will continue to follow clinically. Isiah Merritt MD Cardiology:The ladonna ortiz has a planned laparoscopic hernia repair. She has no 'active' cardiac conditions, and the patient can perform >4 METS of activity without angina. She had an exercise nuclear stress test on 11/29/22 that showed normal myocardial perfusion. LV systolic function is normal with EF 65% on an echocardiogram on the same day. She is considered to be at low risk for perioperative cardiovascular events and may proceed to surgery without any further cardiac testing at this time. I recommend continuing her B-alejandra throughout the perioperative period, including the day of surgery. Isiah Merritt MD Cardiology:The ladonna ortiz has statin intolerance and did not tolerate Resvertarol or Rosuvastatin/Ezetimibe (she took both together) and then did not tolerate just the Ezetimibe. She also tried low-dose Pravastatin. She is now on Repatha and lipids are well-controlled. Isiah Merritt MD Cardiology:Blood pre ssure is mildly elevated, though she was late for the appointment due to traffic and says she was 'in a big time ellison.' Her home systolic BP has been in the 120-130s. I wll continue Toprol and Amlodipine without change Isiah Merritt MD Cardiology:She was p reviously noted to have occasional PVC's with significant improvement after starting Magnesium 400mg qday, which I will continue without change. Isiah Merritt MD Cardiology:Her prior chest tightness/throbbing previously resolved and has not recurred. Her echocardiogram showed normal LV systolic function and her stress test was negative for ischemia, though she did have a hypertensive response to exercise. I started Toprol, and she has had a very good clinical response. I will continue to follow clinically. Isiah Merritt MD Cardiology:The patie nt has statin intolerance and did not tolerate Resvertarol or Rosuvastatin/Ezetimibe (she took both together) and then did not tolerate just the Ezetimibe. She is now on Repatha and lipids are improved but were still above goal. I had her resume low-dose Pravastatin (which she previously tolerated), but she ended up stopping it due to some myalgias. She did try it a second time, but had to stop again. Since she has lost ~20 pounds, I am going to repeat lipids. Isiah Merritt MD Cardiology:Blood pre ssure is improved and at goal on Toprol and Amlodipine, which I will continue without change. Isiah Merritt MD Cardiology:She was p reviously noted to have occasional PVC's with significant improvement after starting Magnesium 400mg qday, which I will continue without change. Isiah Merritt MD Cardiology:Her prior chest tightness/throbbing has resolved. Her echocardiogram showed normal LV systolic function and her stress test was negative fori schemia, though she did have a hypertensive response to exercise, and I started Toprol. Isiah Merritt MD Cardiology:Blood pre ssure was elevated again this visit. I am going to add Amlodipine 5mg qday for blood pressure control, which will also serve as an antianginal agent. Isiah Merritt MD Cardiology:The ladonna nt has statin intolerance and did not tolerate Resvertarol or Rosuvastatin/Ezetimibe (she took both together) and then did not tolerate just the Ezetimibe. She is now on Repatha and lipids are improved but were still above goal. I had her resume low-dose Pravastatin (which she previously tolerated), but she ended up stopping it due to some myalgias. She is going to try and start taking it again, and I even suggesting just taking a half tablet for the first few weeks if needed. Isiah Merritt MD Cardiology:She was p reviously noted to have occasional PVC's with significant improvement after starting Magnesium 400mg qday, which I will continue without change. Isiah Merritt MD Cardiology:The ladonna ortiz reports recent symptoms of chest tightness/throbbing. It has been ~4 years since he last ischemic evaluation. I am going to check an exercise nuclear stress to evaluate for ischemia and an echocardiogram to evaluate cardiac anatomy and function. She did previously stop ASA due to increased bruising, which I was okay with holding since she had prior low risk findings on cardiac testing. Isiah Merritt MD Cardiology:The ladonna ortiz has statin intolerance and did not tolerate Resvertarol or Rosuvastatin/Ezetimibe (she took both together) and then did not tolerate just the Ezetimibe. She has now been on Repatha for several months, and I am going to repeat a fasting lipid panel to evaluate response. Prior to the Repatha and other statins, she did tolerate very low dose Pravastatin but this did not provide adequate lipid lowering alone. I will continue Repatha alone but would consider resuming low dose Pravastatin if her lipids are not at goal. Isiah Merritt MD Cardiology:She was p reviously noted to have occasional PVC's with significant improvement after starting Magnesium 400mg qday, which I will continue without change. Isiah Merritt MD Cardiology:Stable wi thout angina. She had a stress test that showed normal myocardial perfusion with normal LV function. She did stop ASA due to increased bruising. She has had low risk findings on diagnostic testing, and her risk factors are well controlled. She may continue to hold ASA. Isiah Merritt MD Cardiology:The ladonna ortiz has statin intolerance and did not tolerate Resvertarol or Rosuvastatin/Ezetimibe (she took both together) and then did not tolerate just the Ezetimibe. She has now been on Repatha for several months, and I am going to repeat a fasting lipid panel to evaluate response. Prior to the Repatha and other statins, she did tolerate very low dose Pravastatin but this did not provide adequate lipid lowering alone. I will continue Repatha alone but would consider resuming low dose Pravastatin if her lipids are not at goal. Isiah Merritt MD Cardiology:She was p reviously noted to have occasional PVC's with significant improvement after starting Magnesium 400mg qday, which I will continue without change. Isiah Merritt MD Cardiology:Stable wi thout angina. She had a stress test that showed normal myocardial perfusion with normal LV function. I will continue daily ASA with risk factor modification as below. Isiah Merritt MD Cardiology:She is to lerating low-dose Pravastatin but did not tolerate Resvertarol or Rosuvastatin/Ezetimibe (she took both together) and then did not tolerate just the Ezetimibe. I am going to obtain a fasting lipid panel at this time. Isiah Merritt MD Cardiology:She was p reviously noted to have occasional PVC's with significant improved after starting Magnesium 400mg qday, which I will continue without change. Isiah Merritt MD Cardiology:Stable wi thout angina. She had a stress test that showed normal myocardial perfusion with normal LV function. I will continue daily ASA with risk factor modification as below. Isiah Merritt MD Cardiology:She is to lerating low-dose Pravastatin but did not tolerate Resvertarol or Rosuvastatin/Ezetimibe (she took both together). I am going to restart Ezetimibe and follow clinically for now. Isiah Merritt MD Cardiology:She was n oted to have occasional PVC's with significant improved after starting Magnesium 400mg qday, which I will continue without change. Isiah Merritt MD Cardiology: Stable w ithout angina. She had a stress test that showed normal myocardial perfusion with normal LV function. I will continue daily ASA with risk factor modification as below. Isiah Merritt MD Cardiology;nito Le MD Cardiology;nito Haynes [facility] Cardiology;nito Haynes Serota Cardiology;nito Haynes [facility]ota Cardiology;hotler peidndg:neg a2 c and echo Dallas Le MD Cardiology;nito hogan idndg: H er updated medication list for this problem includes: Endur-acin 500 Mg Oral Tablet Extended Release (Niacin) ..... Take 3 tab po at hs Pravastatin Sodium 10 Mg Tab (Pravastatin sodium) ..... Take one tablet by mouth once daily C HOL: 199 (08/13/2019) HDL: 62 (08/13/2019) CRP: 0.5 mg/L (10/13/2018) Homocysteine: 9.2 (10/13/2018) Dallas Le MD Cardiology;nito hogan idndg: T he patient is between 55-77 years old and has smoked at least 30 pack years. The patient is either a current smoker or has quit within the past 15 years. T he patient is recommended to have low dose CT scan for lung cancer screening. Has been counseled regarding the importance of tobacco cessation and abstinence. Shared decision making during this office visit included discussion of the benefits and harms of screening, possible future recommendations of follow-up diagnostic testing, and total amount of radiation exposure. The patient was recommended to have annual low dose CT scan for lung cancer screening and is willing to undergo diagnosis and treatment. Dallas Le MD Cardiology;nito cesar:neg nu c score 35 Dallas Le MD Cardiology:The patie nt is between 55-77 years old and has smoked at least 30 pack years. The patient is either a current smoker or has quit within the past 15 years. T he patient is recommended to have low dose CT scan for lung cancer screening. Has been counseled regarding the importance of tobacco cessation and abstinence. Shared decision making during this office visit included discussion of the benefits and harms of screening, possible future recommendations of follow-up diagnostic testing, and total amount of radiation exposure. The patient was recommended to have annual low dose CT scan for lung cancer screening and is willing to undergo diagnosis and treatment. Nena Sims RN Cardiology:The patie nt continues to abstain, and I have congratulated her on her efforts. I do plan to obtain a non-contrast chest CT for lung cancer screening per guideline recommendations. Isiah Merritt MD Cardiology:I will ch sydnie a TSH and free T4 with her other labs. Isiah Merritt MD Cardiology:I will ch sydnie a Hgb A1c for surveillance. She previously had improved glycemic control with diet and exercise. Isiah Merritt MD Cardiology:I will ch sydnie a fasting lipid panel for surveillance and will continue her current regimen without change for now. She previously did not tolerate using Resvertarol. Isiah Merritt MD Cardiology:Stable wi thout angina. She had a stress test last year that showed normal myocardial perfusion with normal LV function. I will continue daily ASA with risk factor modification as below. Isiah Merritt MD Cardiology: R ecommend echo and exercise nuclear stress test Chad Christine MD Cardiology: l evel 27.1 g oal 50-60 R ecommend D-Minder Roc to track Vitamin D exposure. R ecommend Vitamin D3 5000 IUs daily. Chad Christine MD Cardiology: r esolved f amily history of hypothyroidism in siblings n o evidence of hashimotos r epeat labs in 6 months Chad Christine MD Cardiology: R esolved I ncreased seafood intake to 2-3 times a week. R ecommend omega 3 oil 2 tabs twice a day (Vera or [employer] are preferred brands). C ontinue statin. Chad Christine MD Cardiology: A 1c remains under 5.7 r esolved with lifestyle modifications. cont low glycemic load nutrition regimen. cont exercise regimen Chad Christine MD Cardiology: R emains elevated over 100 but in past was 376 C ontinue Enduracin 1500mg daily. G oal of treatment is ldl-p is under 1000 which is at goal currently Chad Christine MD Cardiology: L DLp is at goal of under 1000.. No elevated Ox LDL. S he did not tolerate resvertarol. Continue pravastatin 10mg daily, Enduracin 750mg BID and CoQ10 at least 100mg daily. C ont omega3 2 tabs twice a day Chad Christine MD Cardiology: i ncreased dypsnea on exertion r ecommend ischemic evaluation Continue asa/statin. cont exercise regimen. Continue Vitamin K2 and omega-3 for plaque stabilization. Chad Christine MD Electrophysiology: a symptomatic f amily history of hypothyroidism in siblings m inimally elevated tsh with normal free t4 and free t3 w ill check full panel and thyroid ab with next set of labs in 6 months Chad Christine MD Electrophysiology: R esolved I ncrease seafood intake to 2-3 times a week. R ecommend omega 3 oil 2 tabs twice a day (Vera or [employer] are preferred brands). C ontinue statin. Chad Christine MD Electrophysiology: A 1c 5.5. resolved with lifestyle modifications. cont low glycemic load nutrition regimen. cont exercise regimen Chad Christine MD Electrophysiology: D ecreased to less than 100 from over 376 previously. Continue Enduracin 1500mg daily. Chad Christine MD Electrophysiology: L DLp is above goal of under 1000.. No elevated Ox LDL. She did not tolerate resvertarol. Continue pravastatin 10mg daily, Enduracin 750mg BID and CoQ10 at least 100mg daily. increase omega3 to 2 tabs twice a day Chad Christine MD Electrophysiology: s table. asymptomatic. Continue asa/statin. cont exercise regimen. Continue Vitamin K2 and omega-3 for plaque stabilization. Chad Christine MD Cardiology: I ncrease seafood intake to 2-3 times a week. R ecommend omega 3 oil 1000mg twice a day (Vera or [employer] are preferred brands). C ontinue statin. Chad Christine MD Cardiology: E levated TMAO has resolved since starting probiotic. Continue daily probiotic. Limit red meats. Chad Christine MD Cardiology: A 1c 5.5. resolved with lifestyle modifications. cont low glycemic load nutrition regimen. resume exercise regimen Chad Christine MD Cardiology:Decreased to less than 100 which is down from 263 and 376 previously. Continue Enduracin 1500mg daily. Chad Christine MD Cardiology:LDLp is i mproving. No elevated Ox LDL. She did not tolerate resvertarol. Continue pravastatin 10mg daily, Enduracin 750mg BID, Omega3 2 tabs dailly., and CoQ10 at least 100mg daily Chad Christine MD Cardiology:stable. a symptomatic. Continue asa/statin. resume exercise regimen. Continue Vitamin K2 and omega-3 for plaque stabilization. Chad Christine MD Cardiology: E levated TMAO. Recommend daily probiotic. Limit red meats. Chad Christine MD Cardiology: r esolved with lifestyle modifications. cont low glycemic load nutrition regimen. resume exercise regimen Chad Christine MD Cardiology: R emains over 100. Down from 263 and 376 previously. Resume Enduracin at lower dose of 500mg daily Chad Christine MD Cardiology: L DLp is elevated, as is Ox LDL. She did not tolerate resvertarol. Recommend resuming pravastatin 10mg daily, Enduracin at a lower dose of 500mg daily, Omega3 2 tabs dailly. Cont CoQ10 at least 100mg daily Chad Christine MD Cardiology: s table. asymptomatic. resume asa/statin. resume exercise regimen. Add vit K2 to regimen for plaque stabilization. Chad Christine MD Cardiology:resolved with lifestyle modifications. cont low glycemic load nutrition regimen. cont exercise Chad Christine MD Cardiology:122. Down from 263 and 376 previously. cont Enduracin 1500mg daily Chad Christine MD Cardiology:LDL-P is elevated at 1704. oxldl 60 borderline high. start transresvertatrol 250mg daily to decrease oxidized ldl and improve anti-oxidant defenses. Patient plans to work on taking medications on routine basis. Cont pravastatin 10mg daily, Enduracin 1500mg daily, Omega3 2 tabs dailly. Cont CoQ10 at least 100mg daily Chad Christine MD Cardiology:stable. a symptomatic. cont asa/statin. cont exercise regimen. Chad Christine MD Date Name BASIC METABOLIC PANE L W/EGFR LIPID PANEL COMPREHENSIVE METABO LIC PANEL, W/EGFR Complete Echo Stress Exercise Card iolite Low Dose Lung CT LIPID PANEL COMPREHENSIVE METABO LIC PANEL, W/EGFR LIPID PANEL Vitamin D, 25-Hydrox y TSH, 3RD GENERATION T-4, FREE HEMOGLOBIN A1c LIPID PANEL COMPREHENSIVE METABO LIC PANEL, W/EGFR CBC (INCLUDES DIFF/P LT) FERRITIN IRON AND TOTAL IRON BINDING CAPACITY Covid Antibody Igg C-REACTIVE PROTEIN VITAMIN B12 FERRITIN IRON AND TOTAL IRON BINDING CAPACITY EKG Low Dose Lung CT Complete Echo Low Dose Lung CT LIPID PANEL T-4, FREE TSH, 3RD GENERATION COMPREHENSIVE METABO LIC PANEL, W/EGFR HEMOGLOBIN A1c Low Dose Lung CT HISTORY OF PROCEDURES Procedure Date Procedure Name Provider Procedure Notes S tatus Complex e/m visit add on Isiah Merritt MD completed EKG Isiah Merritt MD completed EKG Isiah Merritt MD completed EKG Isiah Merritt MD completed EKG Dallas Le MD complete d Counseling LDCT Dallas Le MD september com pleted Counseling LDCT Isiah Merritt MD completed EKG Isiah Merritt MD completed Cardiolite, 2 units Chad Christine MD completed SPECT Images Chad Christine MD compl eted Stress EKG Billy Messina MD compl eted Counseling LDCT Dallas Le MD com pleted EKG Chad Christine MD complet ed SNOMED-CT: [id number] Current Medications Documented Chad Christine MD completed
== END 2024-10-12 13:09 | disposition home or self-care (01) ==
LOC: ANHIMG 13:09
PROVIDERS: Visit Provider Obstetrics & Gynecology
DX: M85.89 Other specified disorders of bone density and structure, multiple sites (principal); Z78.0 Asymptomatic menopausal state; Z13.820 Encounter for screening for osteoporosis
CPT/HCPCS: 77080

== ENCOUNTER 2025-06-28 13:12 | Emergency (ER) | payer MEDICARE, OTHER, SELFPAY ==
--- NOTE | 2025-06-28 13:12 | ED.URI ---
HPI - URI/Sore Throat General Chief Complaint: Upper Respiratory Infection Stated Complaint: Sinus Time Seen by Provider: 06/28/25 13:22 Source: patient, RN notes reviewed and old records reviewed Mode of arrival: ambulatory Limitations: no limitations History of Present Illness HPI Narrative: 69-year-old female presents to the [facility] with 1 day history of sinus congestion, headache, dry cough, postnasal drainage. Denies fevers, body aches. Patient states that she took Mucinex which has helped her symptoms. Onset (ago): day(s) (1) Treatments prior to arrival: cold medicine Related Data Home Medications ?Medication ?Instructions ?Recorded ?Confirmed ?Last Taken ?Type aspirin 81 mg tablet,delayed 81 mg PO DAILY 08/17/19 04/10/24 08/22/19 09:30 History release cholecalciferol (vitamin D3) 125 125 mcg PO DAILY 08/17/19 04/10/24 08/22/19 09:30 History mcg (5,000 unit) tablet (Vitamin D3) coQ10 (ubiquinol) 200 mg capsule 200 mg PO DAILY 08/17/19 04/10/24 08/22/19 09:30 History docusate sodium 100 mg capsule 100 mg PO DAILY 08/17/19 04/10/24 08/22/19 09:30 History (Colace) lactobacillus combination no.8 3 3,000 mmu cells PO DAILY 08/17/19 04/10/24 08/22/19 09:30 History billion cell capsule (Adult Probiotic) niacin (inositol niacinate) 750 mg 750 mg PO BID 08/17/19 04/10/24 08/22/19 09:30 History capsule omega-3 fatty acids-fish oil 360 1 cap PO BID 08/17/19 04/10/24 08/22/19 09:30 History mg-1,200 mg capsule (Fish Oil) pravastatin 10 mg tablet 10 mg PO DAILY 08/17/19 04/10/24 08/22/19 09:30 History raloxifene 60 mg tablet (Evista) 60 mg PO DAILY 08/17/19 04/10/24 08/22/19 09:30 History vitamin K2 40 mcg tablet 100 mcg PO DAILY 08/17/19 04/10/24 08/22/19 09:30 History amlodipine 5 mg tablet 5 mg PO DAILY 02/02/23 04/10/24 Unknown History hydrochlorothiazide 12.5 mg tablet 12.5 mg PO DAILY 02/02/23 04/10/24 Unknown History metoprolol succinate 25 mg 25 mg PO DAILY 02/02/23 04/10/24 Unknown History tablet,extended release 24 hr Allergies Allergy/AdvReac Type Severity Reaction Status Date / Time isoniazid Allergy Unknown Hives Verified 04/10/24 11:26 Review of Systems Review of Systems: All systems reviewed & are unremarkable except as noted in HPI and below Constitutional: Constitutional: Reports no additional constitutional complaints ENT: Reports as per HPI, Reports nasal congestion, Reports nasal discharge and Reports sinus pressure Cardiovascular: Cardiovascular: Reports no additional cardiovascular complaints, Denies chest pain and Denies dyspnea Respiratory: Respiratory: Reports as per HPI, Denies chest congestion, Reports cough ( Dry) and Denies dyspnea Musculoskeletal: Musculoskeletal: Reports no additional musculoskeletal complaints Integumentary/Breasts: Skin/Breast: Reports system reviewed and no additional complaints, except as docu PMFSH Past Medical History Medical History (Updated 06/28/25 @ 13:52 by Lia Mckeon APRN) History of high blood pressure Hyperlipidemia Facial basal cell cancer Family History Family History Father Patient's father is in good health Sibling Family history of hypothyroidism Family history of malignant neoplasm of breast in first degree relative, Onset Age: 47 Mother Patient's mother is Comments At the time of my signature, I reviewed and agree with the nursing past medical, surgical, social, and family history. There is no relevant family history pertinent to the patient complaint. Exam Const: General: cooperative, healthy appearing, comfortable, no acute distress, well developed, alert and well nourished Nutritional Appearance: well nourished Orientation/consciousness: patient oriented x3 Limitations: no limitations HENMT: Head: normal to inspection Ears: hearing grossly normal bilaterally, external ears normal, TM's normal bilaterally, EAC's normal, mastoids normal and no periauricular adenopathy Face and sinus: normal facial exam, sinuses nontender and face symmetric Mouth: Yes Normal oral and palatal mucosa present, Yes lip normal, Yes tongue normal and Yes moist mucous membranes Throat: posterior oropharynx normal, uvula midline and no uvular edema Eyes: General: appearance normal, both eyes and all related structures Alignment and Position: alignment normal Neck: Neck: normal visual inspection, full ROM, no lymphadenopathy and no meningeal signs Chest: Chest palpation & inspection: normal inspection of the chest Resp: Effort & Inspection: normal respiratory effort and able to speak in complete sentences Auscultation: clear to auscultation bilaterally, no crackles, no rales, no rhonchi and no wheezes Cardio: Rate: regular rate Skin: General skin exam: normal color and no rashes or lesions noted Neuro: General: patient oriented x3, gait normal, moves all extremities and no meningeal signs Cognition (Neuro): normal cognition Speech: normal speech Gait exam (Neuro): Normal gait present Extrem: General: normal to inspection, full ROM, capillary refill normal and normal gait Psych: Appearance: grossly normal and well kempt Mental Status: mental status grossly normal Speech and movement: Normal speech and movement present and Clear speech present Affect: normal affect Attitude: cooperative Course Course Level of Care: Express Care Visit Vital Signs Vital signs: Vital Signs Temperature 98.7 F 06/28/25 13:22 Pulse Rate 96 06/28/25 13:22 Respiratory Rate 16 06/28/25 13:22 Blood Pressure 150/69 H 06/28/25 13:22 Pulse Oximetry 98 06/28/25 13:22 Oxygen Delivery Room Air 06/28/25 13:22 Temperature 98.7 F 06/28/25 13:22 Pulse Rate 96 06/28/25 13:22 Respiratory Rate 16 06/28/25 13:22 Blood Pressure 150/69 H 06/28/25 13:22 Pulse Oximetry 98 06/28/25 13:22 Oxygen Delivery Room Air 06/28/25 13:22 Reviewed MDM MDM Narrative Medical decision making narrative: patient sitting in exam room. Patient is nontoxic, vitals stable. Patient with 1 day symptoms of URI symptoms flu COVID negative no acute findings noted on exam patient is appropriate for outpatient treatment with [id number] products, discussed with patient Discharge instructions reviewed with patient, as well as provided in writing per nursing staff. The instructions also include specific and strict return/GO TO THE ER as well as f/u information. All questions have been answered, and the patient deny any further questions with discharge and discharge plan. Some parts of this dictation were generated by voice recognition software and may contain typographical and/or grammatical inaccuracies. Differential Diagnosis Differential Diagnosis: Differential diagnostic considerations for upper respiratory infection include upper respiratory infection, otitis media, sinusitis, viral infection, bronchitis, influenza, pharyngitis, strep, uvulitis.? Lab Data Labs: Lab Results 06/28/25 Range/Units 13:27 POC Influenza A Ag Negative (Negative) POC Influenza B Ag Negative (Negative) POC SARS CoV-2 Ag Negative (Negative) reviewed Critical Care Time Critical Care Time Critical Care Time: No Discharge Plan Discharge Clinical Impression: Viral infection Upper respiratory infection Qualifiers: URI type: unspecified viral URI Qualified Code(s): J06.9 - Acute upper respiratory infection, unspecified Patient Disposition: Home Condition: Stable Instructions: Upper Respiratory Infection (DC), Viral Syndrome (ED) Additional Instructions: Your rapid COVID test were negative Your rapid flu test was negative Your symptoms are likely due to a viral illness, which is not treated with antibiotics. Typically viral infections last 7-10 days, can linger for couple of weeks. It is very important to treat your symptoms. Drink plenty of water, Gatorade, Pedialyte, ice pops or Jell-O. -Alternate Tylenol and Motrin per package directions for fever or pain. You can alternate every 4 hours -Antihistamine medication such as Zyrtec/Claritin during the day can help improve symptoms. -doing daily nasal irrigations can help relieve pressure your sinuses. Things like a Neti pot -Use Flonase daily to help reduce the inflammation and dry up your sinuses. -You can also use Mucinex. Be sure to drink plenty of water with this medication at least 8 ounces with every dose and it is important to drink 8 to 10 glasses of water per day. Water is a natural decongestant -Eat and drink things that are easy to swallow, like tea or soup, or popsicles. -Oral rinses such as: Salt water gargles and/or may use topical anesthetic (eg. Chloraseptic spray) or lozenges to relieve dryness or throat pain). -Frequent hand washing or hand corporate accounting manager is one of the best ways to prevent spread of infection. -Using a vaporizer or humidifier at night will also help thin secretions and help with coughing up phlegm. -Follow up with primary care provider in 7-10 days if condition is not improving - For new or worsening symptoms go directly to the nearest ER Patient Language: Mohawk Prescriptions: No Action amlodipine 5 mg tablet 5 mg PO DAILY metoprolol succinate 25 mg tablet extended release 24 hr 25 mg PO DAILY hydrochlorothiazide 12.5 mg tablet 12.5 mg PO DAILY loratadine [Claritin] 10 mg tablet 10 mg PO DAILY Qty: 30 0RF doxycycline hyclate 100 mg capsule 100 mg PO DAILY Qty: 20 0RF aspirin 81 mg Tablet,Delayed Release (Dr/Ec) 81 mg PO DAILY pravastatin 10 mg Tablet 10 mg PO DAILY docusate sodium [Colace] 100 mg Capsule 100 mg PO DAILY raloxifene [Evista] 60 mg Tablet 60 mg PO DAILY omega-3 fatty acids-fish oil [Fish Oil] 360-1,200 mg Capsule 1 cap PO BID cholecalciferol (vitamin D3) [Vitamin D3] 125 mcg (5,000 unit) Tablet 125 mcg PO DAILY niacin (inositol niacinate) 750 mg Capsule 750 mg PO BID coQ10 (ubiquinol) 200 mg Capsule 200 mg PO DAILY Adult Probiotic 3 billion cell Capsule 3,000 mmu cells PO DAILY vitamin K2 40 mcg Tablet 100 mcg PO DAILY Follow-up/Referrals: UNKNOWN,DOCTOR [Non-Staff] Time of Disposition: 13:51
[2025-06-28 13:22] VITALS: BP 150/69; PULSE 96; RESP 16; TEMP 37.1; O2SAT 98
[2025-06-28 13:50] LABS: EDCOVIDSCREEN Negative (Negative); EDINFLUASCREEN Negative (Negative); EDINFLUBSCREEN Negative (Negative)
== END 2025-06-28 14:00 | disposition home or self-care (01) ==
PROVIDERS: Emergency Provider Nurse Practitioner
DX: B34.9 Viral infection, unspecified (principal); J06.9 Acute upper respiratory infection, unspecified; Z20.822 Contact with and (suspected) exposure to COVID-19; I10 Essential (primary) hypertension; E78.5 Hyperlipidemia, unspecified; Z85.828 Personal history of other malignant neoplasm of skin; Z79.82 Long term (current) use of aspirin
CPT/HCPCS: 87426; 87804; 99212; G0463